=== PATIENT | female | born 1975 | race Caucasian/White ===

== ENCOUNTER 2017-07-23 12:33 | Day surgery (SDC) | payer OTHER ==
[~2017-07-23] VITALS: Ht 162.6 cm; Wt 87.9 kg
[~2017-07-23 12:33] MED LIST: ASPI-161 PO; BUSP15TA47 PO; HYDR12CA PO; IBUP1TAB6 PO; LEVO25TA5 PO; LEXA1TAB PO; OMEP20CA3 PO; VITA100067 PO; ZETI10TA30 PO
[2017-07-23] MEDS ORDERED: NS 1,000 ML IV ONE (13:00)
[2017-07-23] MEDS ORDERED: LIDOCAINE 2% INJ 100 MG/5 ML SDV (FOR ANES.) As Ordered ONE (14:31)
[2017-07-23] MEDS ORDERED: PROPOFOL 200 MG/20 ML VIAL As Ordered ONE (14:31)
[2017-07-23] MEDS ORDERED: fentaNYL 100 MCG/2 ML INJECTION (J3010) As Ordered ONE (15:06)
--- NOTE | 2017-07-23 15:17 | ROOR ---
Patient Name: Kay Pearson Procedure Date: 07/23/2017 3:01 PM Date of : 1975 Age: 42 Room: [facility] Gender: Female Note Status: Finalized Procedure: Upper GI endoscopy Indications: Abdominal pain, Diarrhea Providers: Priyank FISHER MD Referring MD: Zully Silverman NP Requesting Provider: Medicines: Monitored Anesthesia Care Complications: No immediate complications. Procedure: Pre-Anesthesia Assessment: - The heart rate, respiratory rate, oxygen saturations, blood pressure, adequacy of pulmonary ventilation, and response to care were monitored throughout the procedure. The Endoscope was introduced through the mouth, and advanced to the second part of duodenum. The upper GI endoscopy was accomplished without difficulty. The patient tolerated the procedure well. Findings: The esophagus was normal. The stomach was normal. The examined duodenum was normal. Biopsies for histology were taken with a cold forceps in the second portion of the duodenum for evaluation of celiac disease. Impression: - Normal esophagus. - Normal stomach. - Normal examined duodenum. - Biopsies were taken with a cold forceps for evaluation of celiac disease. Recommendation: - Await pathology results. - Telephone endoscopist for pathology results in 2 weeks. Priyank Fisher MD Priyank FISHER MD 07/23/2017 3:16:27 PM This report has been signed electronically. Number of Addenda: 0 Note Initiated On: 07/23/2017 3:01 PM Estimated Blood Loss: Estimated blood loss: none.
--- NOTE | 2017-07-23 15:35 | ROOR ---
Patient Name: Kay Pearson Procedure Date: 07/23/2017 3:02 PM Date of : 1975 Age: 42 Room: [facility] Gender: Female Note Status: Finalized Procedure: Colonoscopy Indications: High risk colon cancer surveillance: Personal history of colonic polyps, Incidental change in bowel habits noted Providers: Priyank FISHER MD Referring MD: Zully Silverman NP Requesting Provider: Medicines: Monitored Anesthesia Care Complications: No immediate complications. Procedure: Pre-Anesthesia Assessment: - The heart rate, respiratory rate, oxygen saturations, blood pressure, adequacy of pulmonary ventilation, and response to care were monitored throughout the procedure. The Colonoscope was introduced through the anus and advanced to 5 cm into the ileum. The colonoscopy was performed without difficulty. The patient tolerated the procedure well. The quality of the bowel preparation was good. Findings: The perianal and digital rectal examinations were normal. (Exam: Complete, Prep: Good or Excellent.) A 5 mm polyp was found in the proximal ascending colon. The polyp was sessile. The polyp was removed with a cold snare. Resection and retrieval were complete. To prevent bleeding after the polypectomy, four hemostatic clips were successfully placed (MR conditional). There was no bleeding at the end of the procedure. The colon exam was otherwise normal throughout the examined colon. The terminal ileum appeared normal. Impression: - (Exam: Complete, Prep: Good or Excellent.) - One 5 mm polyp in the proximal ascending colon, removed with a cold snare. Resected and retrieved. Clips (MR conditional) were placed. - Small internal hemorrhoids. - The rest of the colon and examined portion of the ileum was normal. Recommendation: - Continue present medications. - Telephone endoscopist for pathology results in 2 weeks. - If the pathology report reveals adenomatous tissue, then repeat the colonoscopy for surveillance in 3 years. Priyank Fisher MD Priyank FISHER MD 07/23/2017 3:34:43 PM This report has been signed electronically. Number of Addenda: 0 Note Initiated On: 07/23/2017 3:02 PM Estimated Blood Loss: Estimated blood loss: none.
[2017-07-23 15:55] VITALS: BP 158/91
== END 2017-07-23 16:04 | disposition home or self-care (01) ==
LOC: M OPP 12:33
PROVIDERS: ATTEND Internal Medicine Gastroenterology
DX: Z12.11 Encounter for screening for malignant neoplasm of colon (principal); D12.2 Benign neoplasm of ascending colon; K64.8 Other hemorrhoids; Z86.010 Personal history of colon polyps; R10.9 Unspecified abdominal pain; R19.7 Diarrhea, unspecified; I10 Essential (primary) hypertension; E78.5 Hyperlipidemia, unspecified; E03.9 Hypothyroidism, unspecified; K21.9 Gastro-esophageal reflux disease without esophagitis; F32.9 Major depressive disorder, single episode, unspecified; F41.9 Anxiety disorder, unspecified; F17.210 Nicotine dependence, cigarettes, uncomplicated; Z79.82 Long term (current) use of aspirin; Z79.899 Other long term (current) drug therapy
CPT/HCPCS: 43239; 45385; 88305; J3010

== ENCOUNTER → 2020-10-02 | Outpatient (CLI) | payer OTHER ==
[~2020-10-02] MED LIST changes: +DICY20TA11 PO; +HYDR-3363 PO; +LEVO50TA5 PO; +LISI10TA22 PO; +OMEP1CAP73 PO; -OMEP20CA3 PO; +SIMV40TA20 PO; +TRAZ-252 PO; +VITA200016 PO; +VITA50005 PO; +ZETI10TA16 PO; -ZETI10TA30 PO
== END ==
LOC: M LABSMTC 10:22
PROVIDERS: ATTEND Anesthesiology
DX: Z01.812 Encounter for preprocedural laboratory examination (principal); Z20.822 Contact with and (suspected) exposure to COVID-19

== ENCOUNTER 2020-10-07 08:45 | Day surgery (SDC) | payer OTHER ==
[~2020-10-07] VITALS: Ht 162.6 cm; Wt 75.3 kg
[~2020-10-07 08:45] MED LIST changes: +LIDOCAINE 2% 100MG/5ML SDV (FOR ANES.) As Ordered ONE; +NS 1,000 ML IV ONE; +propofoL 200 MG/20 ML VIAL As Ordered ONE
--- OUTSIDE RECORDS SUMMARY | 2020-10-07 08:50 | CCD ---
Author Author [facility] Organization [facility] Address Unknown Phone Unavailable Care Team Providers Care Supervisor Operations Name Role Phone [place], L Fátima ORDER EXPEDITER Unavailable Unavailable Chris, L Fátima ORDER EXPEDITER Unavailable Unavailable [place], L Fátima ORDER EXPEDITER Unavailable Unavailable [place], L Fátima ORDER EXPEDITER Unavailable Unavailable Chris, L Fátima ORDER EXPEDITER Unavailable Unavailable [place], L Fátima ORDER EXPEDITER Unavailable Unavailable [place], L Fátima ORDER EXPEDITER Unavailable Unavailable Chris, L Fátima ORDER EXPEDITER Unavailable Unavailable [place], L Fátima ORDER EXPEDITER Unavailable Unavailable [facility] [place], L Fátima ORDER EXPEDITER Unavailable Unavailable [place], L Fátima ORDER EXPEDITER Unavailable Unavailable [facility] [place], L Fátima ORDER EXPEDITER Unavailable Unavailable [facility] [place], L Fátima ORDER EXPEDITER Unavailable Unavailable [facility] [place], L Fátima ORDER EXPEDITER Unavailable Unavailable [facility] [place], L Fátima ORDER EXPEDITER Unavailable Unavailable [place], L Fátima ORDER EXPEDITER Unavailable Unavailable [place], L Fátima ORDER EXPEDITER Unavailable Unavailable Chris, L Fátima ORDER EXPEDITER Unavailable Unavailable Chris, L Fátima ORDER EXPEDITER Unavailable Unavailable Chris, L Fátima ORDER EXPEDITER Unavailable Unavailable Chris, L Fátima ORDER EXPEDITER Unavailable Unavailable [facility] [place], L Fátima ORDER EXPEDITER Unavailable Unavailable [facility] [place], L Fátima ORDER EXPEDITER Unavailable Unavailable [facility] [place], L Fátima ORDER EXPEDITER Unavailable Unavailable Chris, L Fátima ORDER EXPEDITER Unavailable Unavailable [facility] [place], L Fátima ORDER EXPEDITER Unavailable Unavailable Chris, L Fátima ORDER EXPEDITER Unavailable Unavailable [facility] [place], L Fátima ORDER EXPEDITER Unavailable Unavailable Chris, L Fátima ORDER EXPEDITER Unavailable Unavailable Chris, L Fátima ORDER EXPEDITER Unavailable Unavailable [facility] [place], L Fátima ORDER EXPEDITER Unavailable Unavailable Chris, L Fátima ORDER EXPEDITER Unavailable Unavailable BENNY, L SISSY PA Unavailable Unavailable BENNY, L SISSY PA Unavailable Unavailable BENNY, L SISSY PA Unavailable Unavailable BENNY, L SISSY PA Unavailable Unavailable BENNY, L SISSY PA Unavailable Unavailable BENNY, L SISSY PA Unavailable Unavailable BENNY, L SISSY PA Unavailable Unavailable BENNY, L SISSY PA Unavailable Unavailable BENNY, L SISSY PA Unavailable Unavailable BENNY, L SISSY PA Unavailable Unavailable BENNY, L SISSY PA Unavailable Unavailable BENNY, L SISSY PA Unavailable Unavailable BENNY, L SISSY PA Unavailable Unavailable BENNY, L SISSY PA Unavailable Unavailable BENNY, L SISSY PA Unavailable Unavailable BENNY, L SISSY PA Unavailable Unavailable BNENY, L SISSY PA Unavailable Unavailable BENNY, L SISSY PA Unavailable Unavailable BENNY, L SISSY PA Unavailable Unavailable MCDERMOTT SR, MIGUEL DIAZ MD Unavailable Unavailable MCDERMOTT SR, MIGUEL DIAZ MD Unavailable Unavailable MCDERMOTT SR, MIGUEL DIAZ MD Unavailable Unavailable MCDERMOTT SR, MIGUEL DIAZ MD Unavailable Unavailable MCDERMOTT SR, MIGUEL DIAZ MD Unavailable Unavailable MCDERMOTT SR, MIGUEL DIAZ MD Unavailable Unavailable MCDERMOTT SR, MIGUEL DIAZ MD Unavailable Unavailable MCDERMOTT SR, MIGUEL DIAZ MD Unavailable Unavailable MCDERMOTT SR, MIGUEL DIAZ MD Unavailable Unavailable MCDERMOTT SR, MIGUEL DIAZ MD Unavailable Unavailable MCDERMOTT SR, MIGUEL DIAZ MD Unavailable Unavailable MCDERMOTT SR, MIGUEL DIAZ MD Unavailable Unavailable MCDERMOTT SR, MIGUEL DIAZ MD Unavailable Unavailable MCDERMOTT SR, MIGUEL DIAZ MD Unavailable Unavailable MCDERMOTT SR, MIGUEL DIAZ MD Unavailable Unavailable MCDERMOTT SR, MIGUEL DIAZ MD Unavailable Unavailable MCDEROMTT SR, MIGUEL DIAZ MD Unavailable Unavailable MCDERMOTT SR, MIGUEL DIAZ MD Unavailable Unavailable MCDERMOTT SR, MIGUEL DIAZ MD Unavailable Unavailable MCDERMOTT SR, MIGUEL DIAZ MD Unavailable Unavailable MCDERMOTT SR, MIGUEL DIAZ MD Unavailable Unavailable MCDERMOTT SR, MIGUEL DIAZ MD Unavailable Unavailable MCDERMOTT SR, MIGUEL DIAZ MD Unavailable Unavailable MCDERMOTT SR, MIGUEL DIAZ MD Unavailable Unavailable MCDERMOTT SR, MIGUEL DIAZ MD Unavailable Unavailable MCDERMOTT SR, MIGUEL DIAZ MD Unavailable Unavailable MCDERMOTT SR, MIGUEL DIAZ MD Unavailable Unavailable MCDERMOTT SR, MIGUEL DIAZ MD Unavailable Unavailable MCDERMOTT SR, MIGUEL DIAZ MD Unavailable Unavailable MCDERMOTT SR, MIGUEL DIAZ MD Unavailable Unavailable MCDERMOTT SR, MIGUEL DIAZ MD Unavailable Unavailable MCDERMOTT SR, MIGUEL DIAZ MD Unavailable Unavailable MCDERMOTT SR, MIGUEL DIAZ MD Unavailable Unavailable MCDERMOTT SR, MIGUEL DIAZ MD Unavailable Unavailable MCDERMOTT SR, MIGUEL DIAZ MD Unavailable Unavailable MCDERMOTT SR, MIGUEL DIAZ MD Unavailable Unavailable MCDERMOTT SR, MIGUEL DIAZ MD Unavailable Unavailable MCDERMOTT SR, MIGUEL DIAZ MD Unavailable Unavailable MCDERMOTT SR, MIGUEL DIAZ MD Unavailable Unavailable MCDERMOTT SR, MIGUEL DIAZ MD Unavailable Unavailable MCDERMOTT SR, MIGUEL DIAZ MD Unavailable Unavailable MCDERMOTT SR, MIGUEL DIAZ MD Unavailable Unavailable MCDERMOTT SR, MIGUEL DIAZ MD Unavailable Unavailable MCDERMOTT SR, MIGUEL DIAZ MD Unavailable Unavailable MCDERMOTT SR, MIGUEL DIAZ MD Unavailable Unavailable MCDERMOTT SR, MIGUEL DIAZ MD Unavailable Unavailable MCDERMOTT SR, MIGUEL DIAZ MD Unavailable Unavailable MCDERMOTT SR, MIGUEL DIAZ MD Unavailable Unavailable MCDERMOTT SR, MIGUEL DIAZ MD Unavailable Unavailable MCDERMOTT SR, MIGUEL DIAZ MD Unavailable Unavailable MCDERMOTT SR, MIGUEL DIAZ MD Unavailable Unavailable MCDERMOTT SR, MIGUEL DIAZ MD Unavailable Unavailable MCDERMOTT SR, MIGUEL DIAZ MD Unavailable Unavailable MCDERMOTT SR, MIGUEL DIAZ MD Unavailable Unavailable ESTRADA, ANGEL ARCE Unavailable Unavailable ESTRADA, ANGEL ARCE Unavailable Unavailable ESTRADA, ANGEL ARCE Unavailable Unavailable ESTRADA, ANGEL ARCE Unavailable Unavailable ESTRADA, ANGEL ARCE Unavailable Unavailable ESTRADA, ANGEL ARCE Unavailable Unavailable ESTRADAANGEL MD Unavailable Unavailable ESTRADA, ANGEL ARCE Unavailable Unavailable ESTRADA, ANGEL ARCE Unavailable Unavailable ESTRADAANGEL MD Unavailable Unavailable MAYURIJuan Ramon CORTEZW DO Unavailable Unavailable MAYURIJuan Ramon CORTEZW DO Unavailable Unavailable MAYURIJuan Ramon CORTEZW DO Unavailable Unavailable MAYURIJuan Ramon CORTEZW DO Unavailable Unavailable MAYURIJuan Ramon CORTEZW DO Unavailable Unavailable MAYURIJuan Ramon CORTEZW DO Unavailable Unavailable MAYURIJuan Ramon CORTEZW DO Unavailable Unavailable MAYURIJuan Ramon CORTEZW DO Unavailable Unavailable MAYURIJuan Ramon CORTEZW DO Unavailable Unavailable MAYURIJuan Ramon CORTEZW DO Unavailable Unavailable MAYURI, J KANDI DO Unavailable Unavailable MAYURI, J KANDI DO Unavailable Unavailable MAYURIJuan Ramon CORTEZW DO Unavailable Unavailable MAYURIJuan Ramon CORTEZW DO Unavailable Unavailable MAYURIJuan Ramon CORTEZW DO Unavailable Unavailable MAYURIJuan Ramon CORTEZW DO Unavailable Unavailable MAYURIJuan Ramon CORTEZW DO Unavailable Unavailable MAYURI, J KANDI DO Unavailable Unavailable MAYURI, J KANDI DO Unavailable Unavailable MAYURI, J KANDI DO Unavailable Unavailable MAYURI, J KANDI DO Unavailable Unavailable MAYURI, Juan Ramon IYERW DO Unavailable Unavailable MAYURI, J KANDI DO Unavailable Unavailable VIN DAVIS FIBER TECHNICIAN-C, MSN Unavailable Unavailab toshia DAVIS, VIN NAIR FIBER TECHNICIAN-C, MSN Unavailable Unavailab le DAVIS, VIN JOANIE FIBER TECHNICIAN-C, MSN Unavailable Unavailab le DAVIS, VIN JOANIE FIBER TECHNICIAN-C, MSN Unavailable Unavailab le DAVIS, VIN JOANIE FIBER TECHNICIAN-C, MSN Unavailable Unavailab le DAVIS, VIN JOANIE FIBER TECHNICIAN-C, MSN Unavailable Unavailab le DAVIS, VIN JOANIE FIBER TECHNICIAN-C, MSN Unavailable Unavailab le DAVIS, VIN JOANIE FIBER TECHNICIAN-C, MSN Unavailable Unavailab le DAVIS, VIN JOANIE FIBER TECHNICIAN-C, MSN Unavailable Unavailab le DAVIS, VIN JOANIE FIBER TECHNICIAN-C, MSN Unavailable Unavailab le DAVIS, VIN JOANIE FIBER TECHNICIAN-C, MSN Unavailable Unavailab le DAVIS, VIN JOANIE FIBER TECHNICIAN-C, MSN Unavailable Unavailab le DAVIS, VIN JOANIE FIBER TECHNICIAN-C, MSN Unavailable Unavailab le DAVIS, VIN JOANIE FIBER TECHNICIAN-C, MSN Unavailable Unavailab le DAVIS, VIN JOANIE FIBER TECHNICIAN-C, MSN Unavailable Unavailab le DAVIS, VIN JOANIE FIBER TECHNICIAN-C, MSN Unavailable Unavailab le DAVIS, VIN JOANIE FIBER TECHNICIAN-C, MSN Unavailable Unavailab le DAVIS, VIN JOANIE FIBER TECHNICIAN-C, MSN Unavailable Unavailab le DAVIS, VIN JOANIE FIBER TECHNICIAN-C, MSN Unavailable Unavailab le DAVIS, VIN JOANIE FIBER TECHNICIAN-C, MSN Unavailable Unavailab le DAVIS, VIN JOANIE FIBER TECHNICIAN-C, MSN Unavailable Unavailab le DAVIS, VIN JOANIE FIBER TECHNICIAN-C, MSN Unavailable Unavailab le DAVIS, VIN JOANIE FIBER TECHNICIAN-C, MSN Unavailable Unavailab le DAVIS, VIN JOANIE FIBER TECHNICIAN-C, MSN Unavailable Unavailab le DAVIS, VIN JOANIE FIBER TECHNICIAN-C, MSN Unavailable Unavailab le DAVIS, VIN JOANIE FIBER TECHNICIAN-C, MSN Unavailable Unavailab le DAVIS, VIN JOANIE FIBER TECHNICIAN-C, MSN Unavailable Unavailab le DAVIS, VIN JOANIE FIBER TECHNICIAN-C, MSN Unavailable Unavailab le DAVIS, VIN JOANIE FIBER TECHNICIAN-C, MSN Unavailable Unavailab le DAVIS, VIN JOANIE FIBER TECHNICIAN-C, MSN Unavailable Unavailab le DAVIS, VIN JOANIE FIBER TECHNICIAN-C, MSN Unavailable Unavailab le DAVIS, VIN JOANIE FIBER TECHNICIAN-C, MSN Unavailable Unavailab le DAVIS, VIN JOANIE FIBER TECHNICIAN-C, MSN Unavailable Unavailab le DAVIS, VIN JOANIE FIBER TECHNICIAN-C, MSN Unavailable Unavailab le DAVIS, VIN JOANIE FIBER TECHNICIAN-C, MSN Unavailable Unavailab le DAVIS, VIN JOANIE FIBER TECHNICIAN-C, MSN Unavailable Unavailab le DAVIS, VIN JOANIE FIBER TECHNICIAN-C, MSN Unavailable Unavailab le DAVIS, VIN JOANIE FIBER TECHNICIAN-C, MSN Unavailable Unavailab le DAVIS, VIN JOANIE FIBER TECHNICIAN-C, MSN Unavailable Unavailab le DAVIS, VIN JOANIE FIBER TECHNICIAN-C, MSN Unavailable Unavailab le DAVIS, VIN JOANIE FIBER TECHNICIAN-C, MSN Unavailable Unavailab le DAVIS, VIN JOANIE FIBER TECHNICIAN-C, MSN Unavailable Unavailab le DAVIS, VIN JOANIE FIBER TECHNICIAN-C, MSN Unavailable Unavailab le BUNDY, W PING PA Unavailable Unavailable BUNDY, W PING PA Unavailable Unavailable BUNDY, W PING PA Unavailable Unavailable BUNDY, W PING PA Unavailable Unavailable BUNDY, W PING PA Unavailable Unavailable BUNDY, W PING PA Unavailable Unavailable BUNDY, W PING PA Unavailable Unavailable BUNDY, W PING PA Unavailable Unavailable BUNDY, W PING PA Unavailable Unavailable BUNDY, W PING PA Unavailable Unavailable BUNDY, W PING PA Unavailable Unavailable BUNDY, W PING PA Unavailable Unavailable BUNDY, W PING PA Unavailable Unavailable Tobi, A Malou FIBER TECHNICIAN Unavailable Unavailable Tobi, A Malou FIBER TECHNICIAN Unavailable Unavailable Tobi, A Malou FIBER TECHNICIAN Unavailable Unavailable Tobi, A Malou FIBER TECHNICIAN Unavailable Unavailable Tobi, A Malou FIBER TECHNICIAN Unavailable Unavailable Tobi, A Malou FIBER TECHNICIAN Unavailable Unavailable Tobi, A Malou FIBER TECHNICIAN Unavailable Unavailable Tobi, A Malou FIBER TECHNICIAN Unavailable Unavailable Tobi, A Malou FIBER TECHNICIAN Unavailable Unavailable Tobi, A Malou FIBER TECHNICIAN Unavailable Unavailable Tobi, A Malou FIBER TECHNICIAN Unavailable Unavailable Tobi, A Malou FIBER TECHNICIAN Unavailable Unavailable Tobi, A Malou FIBER TECHNICIAN Unavailable Unavailable Tobi, A Maolu FIBER TECHNICIAN Unavailable Unavailable Tobi, A Malou FIBER TECHNICIAN Unavailable Unavailable Tobi, A Malou FIBER TECHNICIAN Unavailable Unavailable Tobi, A Malou FIBER TECHNICIAN Unavailable Unavailable Tobi, A Malou FIBER TECHNICIAN Unavailable Unavailable Tobi, A Malou FIBER TECHNICIAN Unavailable Unavailable Tobi, A Malou FIBER TECHNICIAN Unavailable Unavailable Tobi, A Malou FIBER TECHNICIAN Unavailable Unavailable Tobi, A Malou FIBER TECHNICIAN Unavailable Unavailable Tobi, A Malou FIBER TECHNICIAN Unavailable Unavailable Tobi, A Malou FIBER TECHNICIAN Unavailable Unavailable Tobi, A Malou FIBER TECHNICIAN Unavailable Unavailable Tobi, A Malou FIBER TECHNICIAN Unavailable Unavailable Tobi, A Malou FIBER TECHNICIAN Unavailable Unavailable Tobi, A Malou FIBER TECHNICIAN Unavailable Unavailable Tobi, A Malou FIBER TECHNICIAN Unavailable Unavailable Tobi, A Malou FIBER TECHNICIAN Unavailable Unavailable Tobi, A Malou FIBER TECHNICIAN Unavailable Unavailable Tobi, A Malou FIBER TECHNICIAN Unavailable Unavailable Tobi, A Malou FIBER TECHNICIAN Unavailable Unavailable Tobi, A Malou FIBER TECHNICIAN Unavailable Unavailable Tobi, A Malou FIBER TECHNICIAN Unavailable Unavailable Tobi, A Malou FIBER TECHNICIAN Unavailable Unavailable Tobi, A Malou FIBER TECHNICIAN Unavailable Unavailable Tobi, A Malou FIBER TECHNICIAN Unavailable Unavailable Tobi, A Malou FIBER TECHNICIAN Unavailable Unavailable Tobi, A Malou FIBER TECHNICIAN Unavailable Unavailable Tobi, A Malou FIBER TECHNICIAN Unavailable Unavailable Tobi, A Malou FIBER TECHNICIAN Unavailable Unavailable Tobi, A Malou FIBER TECHNICIAN Unavailable Unavailable Tobi, A Malou FIBER TECHNICIAN Unavailable Unavailable URIARTE, W KIERA PA Unavailable Unavailable URIARTE, W KIERA PA Unavailable Unavailable URIARTE, W KIERA PA Unavailable Unavailable URIARTE, W KIERA PA Unavailable Unavailable URIARTE, W KIERA PA Unavailable Unavailable URIARTE, W KIERA PA Unavailable Unavailable URIARTE, W KIERA PA Unavailable Unavailable URIARTE, W KIERA PA Unavailable Unavailable URIARTE, W KIERA PA Unavailable Unavailable URIARTE, W KIERA PA Unavailable Unavailable URIARTE, W KIERA PA Unavailable Unavailable URIARTE, W KIERA PA Unavailable Unavailable URIARTE, W KIERA PA Unavailable Unavailable URIARTE, W KIERA PA Unavailable Unavailable URIARTE, W KIERA PA Unavailable Unavailable URIARTE, W KIERA PA Unavailable Unavailable URIARTE, W KIERA PA Unavailable Unavailable URIARTE, W KIERA PA Unavailable Unavailable URIARTE, W KIERA PA Unavailable Unavailable URIARTE, W KIERA PA Unavailable Unavailable URIARTE, W KIERA PA Unavailable Unavailable URIARTE, W KIERA PA Unavailable Unavailable URIARTE, W KIERA PA Unavailable Unavailable URIARTE, W KIERA PA Unavailable Unavailable URIARTE, W KIERA PA Unavailable Unavailable URIARTE, W KIERA PA Unavailable Unavailable URIARTE, W KIERA PA Unavailable Unavailable URIARTE, W KIERA PA Unavailable Unavailable URIARTE, W KIERA PA Unavailable Unavailable URIARTE, W KIERA PA Unavailable Unavailable URIARTE, W KIERA PA Unavailable Unavailable URIARTE, W KIERA PA Unavailable Unavailable URIARTE, W KIERA PA Unavailable Unavailable URIARTE, W KIERA PA Unavailable Unavailable URIARTE, W KIERA PA Unavailable Unavailable URIARTE, W KIERA PA Unavailable Unavailable URIARTE, W KIERA PA Unavailable Unavailable URIARTE, W KIERA PA Unavailable Unavailable URIARTE, W KIERA PA Unavailable Unavailable URIARTE, W KIERA PA Unavailable Unavailable URIARTE, W KIERA PA Unavailable Unavailable URIARTE, W KIERA PA Unavailable Unavailable URIARTE, W KIERA PA Unavailable Unavailable URIARTE, W KIERA PA Unavailable Unavailable URIARTE, W KIERA PA Unavailable Unavailable URIARTE, W KIERA PA Unavailable Unavailable Re-disclosure Warning The records that you are about to access may contain information from federally-assisted alcohol or drug abuse programs. If such information is present, then the following federally mandated warning applies: This information has been disclosed to you from records protected by federal confidentiality rules (42 CFR part 2). The federal rules prohibit you from making any further disclosure of this information unless further disclosure is expressly permitted by the written consent of the person to whom it pertains or as otherwise permitted by 42 CFR part 2. A general authorization for the release of medical or other information is NOT sufficient for this purpose. The Federal rules restrict any use of the information to criminally investigate or prosecute any alcohol or drug abuse patient.The records that you are about to access may contain highly sensitive health information, the redisclosure of which is protected by Article 27-F of the [place] State Public Health law. If you continue you may have access to information: Regarding HIV / AIDS; Provided by facilities licensed or operated by the [facility] Office of Mental Health; or Provided by the [facility] Office for People With Developmental Disabilities. If such information is present, then the following [facility] mandated warning applies: This information has been disclosed to you from confidential records which are protected by state law. State law prohibits you from making any further disclosure of this information without the specific written consent of the person to whom it pertains, or as otherwise permitted by law. Any unauthorized further disclosure in violation of state law may result in a fine or nursing home sentence or both. A general authorization for the release of medical or other information is NOT sufficient authorization for further disc losure. Family History Family Member Name Family Member Gender Family Member Status Date o f Status Description Data Source(s) Unknown Unknown Problem [facility] Encounters Encounter Providers Location Date Indications Data Source(s ) Outpatient Attender: Malou Britton FNPReferrer: Fátima CASTRO EMERGENCY ROOM-LAB 07/25/2020 10:02:00 AM EST - 07/25/2020 10:02:00 AM [facility] Outpatient Attender: Malou CERVANTES 07/25/2020 08:57 :00 AM [facility] Outpatient [facility] 07/25/2020 12:00:00 AM EST eCW ([facility]) Outpatient [facility] 06/05/2020 12:00:00 AM EDT eCW1 ([facility]) Outpatient Attender: Fátima CASTRO 05/27/2020 08:23:00 AM EDT [facility] Outpatient [facility] 05/27/2020 12:00:00 AM EDT eCW1 ([facility]) Emergency Attender: SISSY Riveraerrer: Naren CASTRO EMERGENCY ROOM-ER 05/22/2020 05:42:00 PM EDT - 05/22/2020 06:15:00 PM EDT [facility] Patient discharged. Outpatient [facility] 04/26/2020 12:00:00 AM EDT eCW1 ([facility]) Outpatient Attender: Fátima CASTROReferrer: Fátima CASTRO 04/23/2020 09:00:00 AM EDT [facility] Outpatient Attender: Fátima Perez RNPReferrer: Naren CASTRO EMERGENCY ROOM-RIVCLI 04/19/2020 08:22:00 AM EDT - 04/19/2020 08:22:00 AM EDT [facility] Outpatient [facility] 04/19/2020 12:00:00 AM EDT eCW1 ([facility]) Outpatient Attender: Fátima Perez RNPReferrer: Naren CASTRO EMERGENCY ROOM-RIVCLI 02/26/2020 07:25:00 AM EDT - 02/26/2020 07:25:00 AM EDT [facility] Outpatient [facility] 02/26/2020 12:00:00 AM EDT eCW1 ([facility]) Outpatient Attender: Fátima CASTROA ttender: JOANIE IVAN, MSNReferrer: Fátima CASTRO 02/12/2020 10:00:00 AM EDT [facility] Outpatient Attender: Fátima Peerz RNPReferrer: Naren CASTRO EMERGENCY ROOM-LAB 01/25/2020 09:25:00 AM EDT - 01/25/2020 09:25:00 AM EDT [facility] Outpatient Attender: Fátima CASTRO 01/24/2020 01:49:00 PM EDT [facility] Outpatient [facility] 01/24/2020 12:00:00 AM EDT eCW1 ([facility]) [facility] C ENTER 12/12/2019 12:00:00 AM EDT eCW1 ([facility]) [facility] 11/23/2019 12:00:00 AM EDT eCW1 ([facility]) Outpatient Attender: JOANIE IVAN MSNReferr er: JOANIE IVAN, MSN EMERGENCY ROOM-RIVCLI 09/26/2019 02:44:00 PM EST - 09/26/2019 02:44:00 PM EST [facility] C ENTER 09/26/2019 12:00:00 AM EST eCW1 ([facility]) Outpatient Attender: JOE MCDERMOTT SRReferrer: JOANIE IVAN, MSN 06/23/2019 08:33:00 AM EST - 06/23/2019 08:33:00 AM [facility] Outpatient Attender: JOE MCDERMOTT SR 05/04/2019 08:39:00 AM [facility] Outpatient Attender: JOE MCDERMOTT SRReferrer: JOANIE IVAN, MSN 02/08/2019 10:00:00 AM [facility] Admission cancelled. Disregard status an d admitted date. Outpatient Attender: JOE MCDERMOTT SR 01/12/2019 06:58:00 AM [facility] Outpatient Attender: JOE MCDERMOTT SRReferrer: JOANIE IVAN, MSN 12/15/2018 08:40:00 AM [facility] - 12/15/2018 08:40:00 AM [facility] Outpatient Attender: JOANIE IVAN, MSNReferr er: JOANIE IVAN MSN EMERGENCY ROOM-LAB 12/15/2018 07:32:00 AM [facility] - 12/15/2018 07:32:00 AM [facility] Outpatient Attender: JOANIE IVAN, MSNReferr er: JOANIE IVAN, MSN 02/07/2018 10:00:00 AM [facility] - 02/07/2018 10:00:00 AM [facility] Outpatient Attender: JOANIE IVAN, MSN 02/05/2017 0 9:41:00 AM [facility] Outpatient Attender: AGNEL ESTRADA MD 04/04/2016 01:48:00 PM [facility] Outpatient Attender: JOANIE IVAN, MSN 03/24/2016 1 0:00:00 AM [facility] Outpatient Attender: KANDI MESSINA DO 12/12/2015 01:00:00 P M [facility] Emergency Attender: PING WILDE EMERGENCY ROOM-ER 2014 08:31:00 AM [facility] - 07/23/2015 12:04:00 PM [facility] Emergency Attender: KIERA WILDE EMERGENCY ROOM-ER 0 03/19/2014 12:51:00 PM EDT - 03/19/2014 04:36:00 PM [facility] Medications Medication Brand Name Start Date Product Form Dose Route Admi nistrative Instructions Pharmacy Instructions Status Indications Reaction Description Data Source(s) 20 mg 08/15/2020 12:00:00 AM EST tablet 120 TAKE 2 TABLETS BY MOUTH 2 TIMES A DAY TAKE 2 TABLETS BY MOUTH 2 TIMES A DAY SOLD: 09/24/2020 [facility] 20 mg 08/15/2020 12:00:00 AM EST tablet 120 TAKE 2 TABLETS BY MOUTH 2 TIMES A DAY TAKE 2 TABLETS BY MOUTH 2 TIMES A DAY SOLD: 08/20/2020 [facility] 40 mg 08/13/2020 12:00:00 AM EST tablet 30 TAKE ONE TABLET BY MOUTH EVERY DAY IN THE EVENING TAKE ONE TABLET BY MOUTH EVERY DAY IN THE EVENING SOLD : 08/20/2020 [facility] ezetimibe 10 MG Oral Tablet EZETIMIBE 08/13/2020 12:00:00 AM EST table t 30 TAKE ONE TABLET BY MOUTH EVERY DAY TAKE ONE TABLET BY MOUTH EVERY DAY SOLD: 08/20/2020 [facility] 600 mg 08/13/2020 12:00:00 AM EST tablet 90 TAKE ONE TABLET BY MOUTH THREE TIMES A DAY NEEDED TAKE ONE TABLET BY MOUTH THREE TIMES A DAY NEEDED S OLD: 08/20/2020 [facility] 50 mcg (2,000 unit) 08/13/2020 12:00:00 AM EST capsule 30 TAKE 1 CAPSULE BY MOUTH ONCE A DAY TAKE 1 CAPSULE BY MOUTH ONCE A DAY SOLD: 09/24/2020 [facility] 81 mg 08/13/2020 12:00:00 AM EST tablet,delayed release (DR/EC) 30 TAKE ONE TABLET BY MOUTH EVERY DAY TAKE ONE TABLET BY MOUTH EVERY DAY SOLD: 08/20/2020 [facility] 40 mg 08/13/2020 12:00:00 AM EST tablet 30 TAKE ONE TABLET BY MOUTH EVERY DAY IN THE EVENING TAKE ONE TABLET BY MOUTH EVERY DAY IN THE EVENING SOLD : 09/24/2020 [facility] 600 mg 08/13/2020 12:00:00 AM EST tablet 90 TAKE ONE TABLET BY MOUTH THREE TIMES A DAY NEEDED TAKE ONE TABLET BY MOUTH THREE TIMES A DAY NEEDED S OLD: 09/24/2020 [facility] 50 mcg 08/13/2020 12:00:00 AM EST tablet 30 TAKE ONE TABLET BY MOUTH EVERY DAY TAKE ONE TABLET BY MOUTH EVERY DAY SOLD: 09/24/2020 [facility] Escitalopram 20 MG Oral Tablet ESCITALOPRAM OXALATE 08/13/2020 1 2:00:00 AM EST tablet 30 TAKE ONE TABLET BY MOUTH EVERY D AY TAKE ONE TABLET BY MOUTH EVERY DAY SOLD: 08/20/2020 [facility] 81 mg 08/13/2020 12:00:00 AM EST tablet,delayed release (DR/EC) 30 TAKE ONE TABLET BY MOUTH EVERY DAY TAKE ONE TABLET BY MOUTH EVERY DAY SOLD: 09/24/2020 [facility] 20 mg 08/13/2020 12:00:00 AM EST capsule,delayed release (DR/EC) 30 TAKE ONE CAPSULE BY MOUTH EVERY DAY NEEDED TAKE ONE CAPSULE BY MOUTH EVERY DAY NEEDED SOLD: 08/20/2020 [facility] Escitalopram 20 MG Oral Tablet ESCITALOPRAM OXALATE 08/13/2020 1 2:00:00 AM EST tablet 30 TAKE ONE TABLET BY MOUTH EVERY D AY TAKE ONE TABLET BY MOUTH EVERY DAY SOLD: 09/24/2020 [facility] ezetimibe 10 MG Oral Tablet EZETIMIBE 08/13/2020 12:00:00 AM EST table t 30 TAKE ONE TABLET BY MOUTH EVERY DAY TAKE ONE TABLET BY MOUTH EVERY DAY SOLD: 09/24/2020 [facility] 50 mcg 08/13/2020 12:00:00 AM EST tablet 30 TAKE ONE TABLET BY MOUTH EVERY DAY TAKE ONE TABLET BY MOUTH EVERY DAY SOLD: 08/20/2020 [facility] 20 mg 08/13/2020 12:00:00 AM EST capsule,delayed release (DR/EC) 30 TAKE ONE CAPSULE BY MOUTH EVERY DAY NEEDED TAKE ONE CAPSULE BY MOUTH EVERY DAY NEEDED SOLD: 09/24/2020 [facility] 50 mcg (2,000 unit) 08/13/2020 12:00:00 AM EST capsule 30 TAKE 1 CAPSULE BY MOUTH ONCE A DAY TAKE 1 CAPSULE BY MOUTH ONCE A DAY SOLD: 08/20/2020 [facility] MAGNESIUM CITRATE 07/31/2020 12:00:00 AM EST solution 296 DRINK 1 BOTTLE (10 OUNCES) PRIOR TO PROCEDURE FOR ADDITIONAL BOWEL PREP DIRECTED DRINK 1 BOTTLE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 Irritable bowel syndrome with constipatio n Problem 09/26/2019 12:00:00 AM [facility] eCW1 ([facility]) K58.1 IRRITABLE BOWEL SYNDROME WITH CONSTIPATI ON IRRITABLE BOWEL SYNDROME WITH CONSTIPATION Diagnosis 07/25/2020 08:57:00 AM [facility] I10 Essential (primary) hypertension ESSENTIAL (PRIMARY) H YPERTENSION Diagnosis 07/25/2020 08:57:00 AM [facility] F17.210 Nicotine dependence, cigarettes, uncompl icated NICOTINE DEPENDENCE, CIGARETTES, UNCOMPLICATED Diagnosis 07/25/2020 08:57:00 AM [facility] E03.9 Hypothyroidism, unspecified HYPOTHYROIDISM, UNSPECIFIE D Diagnosis 07/25/2020 08:57:00 AM [facility] K21.9 Gastro-esophageal reflux disease without esophagitis GASTRO-ESOPHAGEAL REFLUX DISEASE WITHOUT ESOPHAGIT Diagnosis 07/25/2020 08:57:00 AM [facility] E78.5 Hyperlipidemia, unspecified HYPERLIPIDEMIA, UNSPECIFIE D Diagnosis 07/25/2020 08:57:00 AM [facility] E55.9 Vitamin D deficiency, unspecified VITAMIN D DEFI CIENCY, UNSPECIFIED Diagnosis 07/25/2020 08:57:00 AM [facility] Z71.2 Person consulting for explanation of exa mination or test findings PERSON CONSULTING FOR EXPLANATION OF EXAM OR TEST Diagnosis 05/27/2020 08:23: 00 AM [facility] R63.1 Polydipsia POLYDIPSIA Diagnosis 05/27/2020 08:23:00 AM [facility] M54.5 Low back pain LOW BACK PAIN Diagnosis 05/27/2020 08:23:00 AM [facility] E87.6 Hypokalemia HYPOKALEMIA Diagnosis 05/27/2020 08:23:00 AM [facility] Y93.89 Activity, other specified ACTIVITY, OTHER SPECIFIED Di agnosis 05/22/2020 05:42:00 PM [facility] Y92.[address] the place of o ccurrence of the external cause OTH PLACES THE PLACE OF OCCURRENCE OF THE EXTER Diagnosis 02/2020 05:42:00 PM [facility] X58.XXXA Exposure to other specified factors, ini tial encounter EXPOSURE TO OTHER SPECIFIED FACTORS, INITIAL ENCOU Diagnosis 05/22/2020 05:42:00 P M [facility] Z79.899 Other care home (current) drug therapy O THER WEB SERVICES PROFESSIONAL (CURRENT) DRUG THERAPY Diagnosis 05/22/2020 05:42:00 PM [facility] 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 JAIL (CU RRENT) USE OF ASPIRIN Diagnosis 05/22/2020 05:42:00 PM [facility] Z79.1 shelter (current) use of non-steroidal anti-inflammatories (NSAID) WEB SERVICES PROFESSIONAL (CURRENT) USE OF NON-STEROIDAL NON-INFLA Diagnosis 05/22/20 20 05:42:00 PM [facility] R53.1 Weakness WEAKNESS Diagnosis 05/22/2020 05:42:00 PM [facility] S39.012A Strain of muscle, fascia and tendon of l ower back, initial encounter STRAIN OF MUSCLE, FASCIA AND TENDON OF LOWER BACK, Diagnosis 02/2020 05:42:00 PM [facility] Z87.19 Personal history of other diseases of th e digestive system PERSONAL HISTORY OF OTHER DISEASES OF THE DIGESTIV Diagnosis 04/19/2020 08:22:0 0 AM [facility] R10.10 Upper abdominal pain, unspecified UPPER ABDOMINA L PAIN, UNSPECIFIED Diagnosis 04/19/2020 08:22:00 AM [facility] Z86.39 Personal history of other endocrine, nut ritional and metabolic disease PERSONAL HISTORY OF ENDO, NUTRITIONAL AN Diagnosis 04/19/2020 08:22:00 AM [facility] R63.4 Abnormal weight loss ABNORMAL WEIGHT LOSS Diagnosis 04/19/2020 08:22:00 AM [facility] Z01.419 Encounter for gynecological examination (general) (routine) without abnormal findings ENCNTR FOR INVESTIGATOR WELFARE EXAM (GENERAL) (ROUTINE) W/O ABN FINDIN GS Diagnosis 02/26/2020 07:25:00 AM [facility] Z12.39 Encounter for other screening for malign ant neoplasm of breast ENCOUNTER FOR OTH SCREENING FOR MALIGNAN Diagnosis 02/12/2020 10:00:00 AM [facility] Z12.31 Encounter for screening mammogram for ma lignant neoplasm of breast ENCNTR SCREEN MAMMOGRAM FOR MALIGNANT NEOPLASM OF BREAST Diagnosis 01/15 10:00:00 AM [facility] Z13.1 Encounter for screening for diabetes pavithra litus ENCOUNTER FOR SCREENING FOR DIABETES MELLITUS Diagnosis 01/24/2020 01:49:00 PM [facility] F43.29 Adjustment disorder with other symptoms ADJUSTMENT DISORDER WITH OTHER SYMPTOMS Diagnosis 01/24/2020 01:49:00 PM [facility] K58.9 Irritable bowel syndrome without diarrhe a IRRITABLE BOWEL SYNDROME WITHOUT DIARRHEA Diagnosis 01/24/2020 01:49:00 PM [facility] Z18.10 Retained metal fragments, unspecified RE TAINED METAL FRAGMENTS, UNSPECIFIED Diagnosis 09/26/2019 02:44:00 PM [facility] R10.816 Epigastric abdominal tenderness EPIGASTRIC ABDOM INAL TENDERNESS Diagnosis 09/26/2019 02:44:00 PM [facility] R14.0 Abdominal distension (gaseous) ABDOMINAL DISTENSION (G ASEOUS) Diagnosis 09/26/2019 02:44:00 PM [facility] R10.826 Epigastric rebound abdominal tenderness EPIGASTRIC REBOUND ABDOMINAL TENDERNESS Diagnosis 09/26/2019 02:44:00 PM [facility] K59.01 Slow transit constipation SLOW TRANSIT CONSTIPATION Di agnosis 09/26/2019 02:44:00 PM [facility] Z86.010 Personal history of colonic polyps PERSONAL HIST ORY OF COLONIC POLYPS Diagnosis 09/26/2019 02:44:00 PM [facility] R14.2 Eructation ERUCTATION Diagnosis 09/26/2019 02:44:00 PM [facility] Results ID Date Data Source [id number] 10/02/2020 09:55:00 AM [facility] Name Value Range Interpretation Code Description Data Agnieszka rce(s) Supporting Document(s) SARS coronavirus 2 RNA Not Detected [facility] This lab was ordered by [facility] and reported by [facility]. ID Date Data Source [id number] 07/26/2020 08:09:00 AM [facility] Name Value Range Interpretation Code Description Data Agnieszka rce(s) Supporting Document(s) VITAMIN D, 25-HYDROXY 59.2 ng/mL 30.0-100.0 [facility] Vitamin D deficiency has been defined by the [place] of[place]icine and an Endocrine Society practice guideline as alevel of serum 25-OH vitamin D less than 20 ng/mL (1,2).The Endocrine Society went on to further define vitamin Dinsufficiency as a level between 21 and 29 ng/mL (2).1. IOM ([place] of Medicine). 2010. Dietary reference intakes for calcium and D. [place]: The National Academies Press.2. Moo Marcial, Vinod ALARCON, et al. Evaluation, treatment, and prevention of vitamin D deficiency: an Endocrine Society clinical practice guideline. JCEM. 2010; 96(7):1911- 30.Performed at: RN - [facility] [address] [id number] Director: Eva Crump MD, Phone: [phone] ID Date Data Source [id number] 07/26/2020 08:07:00 AM EST [facility] Name Value Range Interpretation Code Description Data Agnieszka rce(s) Supporting Document(s) Vitamin D, 25-Hydroxy 59.2 ng/mL 30.0-100.0 [facility] Vitamin D deficiency has been defined by the [place] of[place] and an Endocrine Society practice guideline as alevel of serum 25-OH vitamin D less than 20 ng/mL (1,2).The Endocrine Society went on to further define vitamin Dinsufficiency as a level between 21 and 29 ng/mL (2).1. IOM ([place] of [employer]). 2010. Dietary reference intakes for calcium and D. [place]: The National Academies Press.2. Moo Marcial, Vinod ALARCON, et al. Evaluation, treatment, and prevention of vitamin D deficiency: an Endocrine Society clinical practice guideline. JCEM. 2010; 96(7):1911-30. ID Date Data Source [id number] 05/23/2020 09:32:00 AM EDT [facility] Patient: REMI JIMENEZ Observation Report - [facility].VisitID: [id number] [place] [address] [phone], FRegistration Date/Time: 05/22/2020 14:42 Weight:77.5 kg (S). Height/Length:64 inches (S). BMI:29.3 PAST HISTORYProblems:Depression.Bipolar Disorder.Peptic Ulcer Disease.Gastroesophageal Reflux Disease.Hypothyroidism. Additional Surgeries:Colonoscopy..Endoscopy.Nuvasure.Tubal Ligation. Medications:Ibuprofen Oral (Tablet 600 mg) 1 tablet, 3x a day as needed, last dose 1 month ago.traZODone HCl Oral (Tablet 50 mg) 1-2 tabs, as needed, at bedtime, last dose 3 days ago.Vitamin D Oral 50,000, once a week, last dose 05/16/2020 (on ).Lexapro Oral (Tablet 20 mg) 1 tablet, daily as needed, last dose 05/21/2020.Dicyclomine HCl Oral (Tablet 20 mg) 1 tablet, 2x a day, last dose 05/22/2020 at 0800.Aspirin Oral (Tablet Chewable 81 mg) 1 tablet, daily as needed, last dose 05/21/2020.Zetia Oral (Tablet 10 mg) 1 tablet, daily as needed, last dose 05/21/2020.Vitamin D3 Oral 2000 unit, daily, last dose 05/22/2020 at 0800.Simvastatin Oral (Tablet 40 mg) 1 tablet, daily, last dose 05/21/2020.hydroCHLOROthiazide Oral (Tablet 12.5 mg) 1 tablet, daily, last dose 05/22/2020 at 0800.Omeprazole Oral 20 mg, daily, last dose 05/22/2020 at 0800.Levothyroxine Sodium Oral 50 mcg, daily, last dose 05/22/2020. Allergies:No Known Drug Allergy. FAMILY HISTORYNegative. No significant family medical history. (Electronically signed by Maureen Wagner 05/23/2020 09:18) Name Value Range Interpretation Code Description Data Agnieszka rce(s) Supporting Document(s) ID Date Data Source [id number] 05/24/2020 08:10:00 AM EDT [facility] Name Value Range Interpretation Code Description [facility] Supporting Document(s) TRIIODOTHYRONINE (T3) 80 ng/dL 71-180 Shay crabtree Performed at: [facility] [place] [id number] Director: Eva Crump MD, Phone: [phone] ID Date Data Source [id number] 05/24/2020 08:06:00 AM EDT [facility] Name Value Range Interpretation Code Description Data Agnieszka rce(s) Supporting Document(s) Triiodothyronine (T3) 80 ng/dL 71-180 [facility] ID Date Data Source [id number] 05/22/2020 06:31:00 PM EDT [facility] TSYSORDER [id number] Name Value Range Interpretation Code Description Data Agnieszka rce(s) Supporting Document(s) HGBA1C 5.3 % 3.8-5.6 [facility] Diabetic > or = to 6.5%Prediabetes 5.7-6 .4%Normal <5.7 ID Date Data Source [id number] 05/22/2020 06:31:00 PM EDT [facility] TSYSORDER [id number] Name Value Range Interpretation Code Description Data Agnieszka rce(s) Supporting Document(s) TSH 1.84 uIU/mL 0.36-3.74 [facility] ID Date Data Source [id number] 05/22/2020 05:33:00 PM EDT [facility] TSYSORDER [id number] Name Value Range Interpretation Code Description Data Agnieszka rce(s) Supporting Document(s) MAGNESIUM 2.0 mg/dL 1.8-2.4 [facility] ID Date Data Source [id number] 05/22/2020 05:33:00 PM EDT [facility] TSYSORDER [id number] Name Value Range Interpretation Code Description Data Agnieszka rce(s) Supporting Document(s) LIPASE 121 U/L 73-393 [facility] ID Date Data Source [id number] 05/22/2020 05:33:00 PM EDT [facility] TSYSORDER [id number] Name Value Range Interpretation Code Description Data Agnieszka rce(s) Supporting Document(s) GLUCOSE 80 mg/dL 74-106 [facility] BLOOD UREA NITROGEN 12 mg/dL 7-18 [facility] ital CREATININE 0.9 mg/dL 0.6-1.0 [facility] SODIUM 139 mmol/L 136-145 [facility] POTASSIUM 3.2 mmol/L 3.5-5.1 [facility] CHLORIDE 100 mmol/L 98-107 [facility] CO2 28 mmol/L 21-32 [facility] CALCIUM 9.6 mg/dL 8.5-10.1 [facility] ANION GAP 11.0 mmol/L 5-12 [facility] GLOMERULAR FILTRATION RATE 68 mL/min [facility] GFR IS CALCULATED IN mL/min/1.73m2 VICENTA L FUNCTION: >90MILDLY DECREASED: 60-89MILDY TO MODERATELY DECREASED: 45-59 MODERATELY TO SEVERELY DECREASED: 30-44SEVERELY DECREASED: 15-29RENAL FAILURE: <15 AST 23 U/L 15-37 [facility] ALT 26 U/L 12-78 [facility] ALKALINE PHOSPHATASE 71 U/L 46-116 [facility] pitms TOTAL BILIRUBIN 0.4 mg/dL 0.2-1.0 [facility] TOTAL PROTEIN 8.3 g/dl 6.4-8.2 H [facility] ALBUMIN 4.7 gm/dL 3.4-5.0 [facility] ID Date Data Source [id number] 05/22/2020 05:33:00 PM EDT [facility] TSYSORDER [id number] Name Value Range Interpretation Code Description Data Agnieszka rce(s) Supporting Document(s) PARTIAL THROMBOPLASTIN TIME 26.6 SECONDS 21.4-30.2 [facility] ID Date Data Source [id number] 05/22/2020 05:33:00 PM T [facility] TSYSORDER [id number] Name Value Range Interpretation Code Description Data Agnieszka rce(s) Supporting Document(s) PROTHROMBIN TIME (PATIENT) 9.8 SECONDS 9.2-11.6 [facility] INR 0.94 0.87-1.06 [facility] ID Date Data Source [id number] 05/22/2020 05:14:00 PM T [facility] TSYSORDER [id number] Name Value Range Interpretation Code Description Data Agnieszka rce(s) Supporting Document(s) WHITE BLOOD COUNT 8.7 K/mm3 4.0-10.0 [facility] al RED BLOOD COUNT 4.47 M/mm3 4.00-5.50 [facility] HEMOGLOBIN 14.4 gm/dL 12.0-16.0 [facility] HEMATOCRIT 42.5 % 36.0-48.8 [facility] MEAN CELL VOLUME 95.1 fl 80-96 [facility] MEAN CORPUSCULAR HEMOGLOBIN 32.2 pg 27.0-31.0 H [facility] MEAN CORPUSCULAR HGB CONC 33.9 g/dl 32.0-36.0 [facility] RED CELL DISTRIBUTION WIDTH 12.8 % 10.0-14.5 [facility] PLATELET COUNT 353 K/mm3 172-450 [facility] MEAN PLATELET VOLUME 9.2 fl 9.0-13.0 [facility] pital GRAN % 62.4 % 50-80.0 [facility] IG% 0.1 % 0.0-0.2 [facility] LYMPH % 29.5 % 25.0-50.0 [facility] MONO % 7.1 % 2.0-10.0 [facility] EOS % 0.6 % 0-5.0 [facility] BASO % 0.3 % 0.0-2.0 [facility] GRAN # 5.4 K/mm3 2.0-8.00 [facility] IG# 0.0 K/mm3 0.0-0.2 [facility] LYMPH # 2.6 K/mm3 1.0-5.0 [facility] MONO # 0.6 K/mm3 0.10-1.20 [facility] EOS # 0.1 K/mm3 0.0-0.5 [facility] BASO # 0.0 K/mm3 0.0-0.2 [facility] ID Date Data Source [id number] 05/22/2020 05:18:00 PM EDT [facility] ital TSYSORDER [id number] Name Value Range Interpretation Code Description Data Agnieszka rce(s) Supporting Document(s) URINE COLOR. [facility] URINE APPEARANCE SLIGHTY CLOUDY [facility] URINE GLUCOSE (UA) NEGATIVE mg/dL NEGATIVE [facility] URINE BILIRUBIN NEGATIVE NEGATIVE [facility] URINE KETONE 5(TRACE) mg/dL [facility]IVE [facility] SPECIFIC GRAVITY,URINE 1.010 1.001-1.035 [facility] 05/22/20 1725: SG previously reported a s: 1.025 URINE BLOOD NEGATIVE NEGATIVE [facility] 05/22/20 1726: BLOOD previously reporte d as: TRACE H @Manual Entery of ALL Results have been Rechecked @By TRACEY on 05/22/20 @ 7609. PH,URINE 5.0 5.0-9.0 [facility] 05/22/20 1726: PH previously reported a s: 6.0 URINE PROTEIN NEGATIVE mg/dL NEGATIVE [facility] 05/22/20 1726: PROT previously reported as: 1+(30) H mg/dL URINE UROBILINOGEN NORMAL(0.2-1) mg/dL 0-1 [facility] URINE NITRATE NEGATIVE NEGATIVE [facility] URINE LEUKOCYTE ESTERASE NEGATIVE NEGATIVE [facility] 05/22/20 1727: LEUK ABIGAIL previously re ported as: TRACE ID Date Data Source [id number] 04/23/2020 09:52:00 AM EDT [facility] l DATE OF EXAMINATION: 04/23/2020 8:48 EDT U S ABDOMINAL COMPLETE COMPARED TO: No priors HISTORY: Abdominal pain Real-time ultrasound imaging was performed utilizing B-mode/gross scale and colorDoppler imaging where applicable. The liver displays a normal homogeneous echotexture throughout. There is nointra or extrahepatic biliary dilation. The gallbladder appears normal,revealing no signs of gallstones or gallbladder wall thickening. The common bileduct measures 7mm. The right kidney measures 11.2cm and the left kidney oyoszzkk32.2cm longitudinally. Both kidneys display normal homogeneous echotexturethroughout and show no hydronephrosis. The visualized portions of the pancreas,spleen, the abdominal aorta and IVC are normal in appearance. IMPRESSION: Normal abdominal sonogram. Electronically signed in PS360 by: Nadeem Juárez M.D. 04/23/2020 9:46 EDT Name Value Range Interpretation Code Description Data Agnieszka rce(s) Supporting Document(s) ID Date Data Source FREE T4 04/19/2020 11:31:44 AM EDT eCW1 ([facility]) Name Value Range Interpretation Code Description Data Agnieszka rce(s) Supporting Document(s) 1.24 FREE T4 eCW1 ([facility]) ID Date Data Source HGBA1C 04/19/2020 11:31:33 AM EDT eCW1 ([facility]) Name Value Range Interpretation Code Description Data Agnieszka rce(s) Supporting Document(s) Hemoglobin A1c/Hemoglobin.total in Blood 5.7 HGBA1C eCW1 ([facility]) ID Date Data Source TSH 04/19/2020 11:31:24 AM EDT eCW1 ([facility]) Name Value Range Interpretation Code Description Data Agnieszka rce(s) Supporting Document(s) 1.50 TSH eCW1 ([facility]) ID Date Data Source [id number] 04/19/2020 10:03:00 AM EDT [facility] l Name Value Range Interpretation Code Description Data Agnieszka rce(s) Supporting Document(s) TSH 1.50 uIU/mL 0.36-3.74 [facility] ID Date Data Source [id number] 04/19/2020 10:03:00 AM EDT [facility] Name Value Range Interpretation Code Description Data Agnieszka rce(s) Supporting Document(s) FREE T4 1.24 ng/dL 0.76-1.46 [facility] ID Date Data Source [id number] 04/19/2020 09:17:00 AM EDT [facility] l Name Value Range Interpretation Code Description Data Agnieszka rce(s) Supporting Document(s) HGBA1C 5.7 % 3.8-5.6 H [facility] Diabetic > or = to 6.5%Prediabetes 5.7-6 .4%Normal <5.7 ID Date Data Source [id number] 04/19/2020 09:17:00 AM EDT [facility] l Name Value Range Interpretation Code Description Data Agnieszka rce(s) Supporting Document(s) ESTIMATED AVERAGE GLUCOSE 116.9 mg/dL [facility] ID Date Data Source [id number] 02/27/2020 08:02:00 AM EDT [facility] Specimen Comment: Source.............End ocervixSpecimen Comment: No. of containers..01 ThinPrep Vial Name Value Range Interpretation Code Description Data Agnieszka rce(s) Supporting Document(s) REFLEX PAP Comment . [facility] The HPV DNA reflex criteria were not met with this specimenresult therefore, no HPV testing was performed.Performed at: [address] [id number] Director: Joel Mina MD, Phone: [phone] DIAGNOSIS: Comment . [facility] NEGATIVE FOR INTRAEPITHELIAL LESION OR M ALIGNANCY.THIS SPECIMEN WAS RESCREENED PART OF OUR PRESCRIPTION EYEGLASS MAKER PROGRAM. SPECIMEN ADEQUACY: Comment . [facility] Satisfactory for evaluation. No endocer vical component is identified.The absence of an endocervical component was confirmed by an additionalscreening evaluation. PERFORMED BY: Comment . [facility] Yolanda Salinas Security Systems Administrator (ASCP) QC REVIEWED BY: Comment . [facility] Miguel Briggs Security Systems Administrator (ASCP ) . . . [facility] NOTE: Comment . [facility] The Pap smear is a screening test design ed to aid in thedetection of premalignant and malignant conditions of theuterine cervix. It is not a diagnostic procedure andshould not be used as the sole means of detecting cervicalcancer. Both false-positive and false-negative reports dooccur. ID Date Data Source [id number] 02/28/2020 02:05:00 PM EDT [facility] Name Value Range Interpretation Code Description Data Agnieszka rce(s) Supporting Document(s) IGP,rfx Aptima HPV Wheelz You TESTS RESULT FLAG UNI TS REF RANGE LAB Clinician Provided Cytology Information Source.............Endocervix No. of containers..01 ThinPrep VialDIAGNOSIS: 01 NEGATIVE FOR INTRAEPITHELIAL LESION OR MALIGNANCY. THIS SPECIMEN WAS RESCREENED PART OF OUR PRESCRIPTION EYEGLASS MAKER PROGRAM.Specimen adequacy: 01 Satisfactory for evaluation. No endocervical component is identified. The absence of an endocervical component was confirm ed by an additional screening evaluation.Performed by: 01 Yolanda Salinas Security Systems Administrator (ASCP)QC reviewed by: Galina Briggs Security Systems Administrator (ASCP). 01Note: Note 01 The Pap smear is a screening test designed to aid in the detection of premalignant and malignant conditions of the uterine cervix. It is not a diagnostic procedure and should not be used as the sole means of detecting cervical cancer. Both false-positive and false-negative reports do occur. Test Methodology: Note 01 This liquid based ThinPrep(R) pap test was screened with the use of an image guided system.. 01 The HPV DNA reflex criteria were not met with this specimen result therefore, no HPV testing was performed. FLAG LEGEND: L-Low Normal,H-High Normal,LL-Alert Low,HH-Alert High <-Panic Low,>-Panic High,A-Abnormal,AA-Critical Abnormal Performed at:[address] [id number] Joel Mina MD, ID Date Data Source [id number] 02/12/2020 11:44:00 AM EDT [facility] DATE OF EXAMINATION: 02/12/2020 9:52 EDT MAMMO SCREEN BILAT WITH CAD HISTORY: Screening Based on the personal and family history information your patient supplied atthe time of imaging, her lifetime risk of breast cancer estimated date by theTyrer-Cuzick model is 8.5%. If anything changes in the personal and/or familyhistory this percentage could increase or decrease. Currently, NCCN and ACSrecommended adjunctive breast MRI screening starting at age 30 for women with a> 20-25% lifetime risk of developing breast cancer. Comparison is made to prior study dated 02/08/2019. 2-D bilateral digital mammogram in the CC and MLO planes were performed withsupplemental 3-D tomosynthesis of both breasts. The images were analyzed through the latest version of the [employer] computer animator ddiagnosis system. The patient states that her last clinical breast examination was 02/09/2020. Craniocaudal and oblique lateral views of the breasts were obtained. Thebreasts are almost entirely fatty. There is no dominant mass, suspiciousclustered calcification, or architectural distortion. IMPRESSION: No mammographic evidence of malignancy. BiRAD 1 - Negative, Routine Yearly Mammographic Follow-up Recommended. 10-15% of cancers are not identified by mammography. This usually occurs whenthe mass is of the same radiographic density as the surrounding breast tissue,emphasizing the importance of breast self examination (BSE) and physicalexamination. A normal mammogram should not delay biopsy if a suspicious mass orabnormal findings are present upon physical examination. Electronically signed in [id number] by: Nadeem Juárez M.D. 02/12/2020 11:38 EDT Name Value Range Interpretation Code Description Data Agnieszka rce(s) Supporting Document(s) ID Date Data Source [id number] 01/26/2020 08:06:00 AM EDT [facility] Name Value Range Interpretation Code Description Data [facility] rce(s) Supporting Document(s) Vitamin D, 25-Hydroxy 63.8 ng/mL 30.0-100.0 [facility] Vitamin D deficiency has been defined by the [place] of[place]icine and an Endocrine Society practice guideline as alevel of serum 25-OH vitamin D less than 20 ng/mL (1,2).The Endocrine Society went on to further define vitamin Dinsufficiency as a level between 21 and 29 ng/mL (2).1. IOM ([place] of [employer]). 2010. Dietary reference intakes for calcium and D. [place]: The National Academies Press.2. Laurel MF, Moo ELLINGTON, Vinod ALARCON, et al. Evaluation, treatment, and prevention of vitamin D deficiency: an Endocrine Society clinical practice guideline. JCEM. 2010; 96(7):1911-30. ID Date Data Source [id number] 01/26/2020 08:06:00 AM EDT [facility] Name Value Range Interpretation Code Description Data Agnieszka rce(s) Supporting Document(s) VITAMIN D, 25-HYDROXY 63.8 ng/mL 30.0-100.0 [facility] Vitamin D deficiency has been defined by the [place] of[place] and an Endocrine Society practice guideline as alevel of serum 25-OH vitamin D less than 20 ng/mL (1,2).The Endocrine Society went on to further define vitamin Dinsufficiency as a level between 21 and 29 ng/mL (2).1. IOM ([place] of [employer]). 2010. Dietary reference intakes for calcium and D. [place]: The National Academies Press.2. Laurel MF, Moo [place], Vinod ALARCON, et al. Evaluation, treatment, and prevention of vitamin D deficiency: an Endocrine Society clinical practice guideline. JCEM. 2010; 96(7):1911- 30.Performed at: RN - [facility] [address] [id number] Director: Eva Crump MD, Phone: [phone] ID Date Data Source [id number] 01/25/2020 10:17:00 AM EDT [facility] Name Value Range Interpretation Code Description Data Agnieszka rce(s) Supporting Document(s) FREE T4 0.94 ng/dL 0.76-1.46 [facility] ID Date Data Source [id number] 01/25/2020 10:17:00 AM EDT [facility] Name Value Range Interpretation Code Description Data Agnieszka rce(s) Supporting Document(s) TSH 2.87 uIU/mL 0.36-3.74 [facility] ID Date Data Source [id number] 01/25/2020 10:06:00 AM EDT [facility] Name Value Range Interpretation Code Description Data Agnieszka rce(s) Supporting Document(s) CHOLESTEROL 186 mg/dL 0-200 [facility] TRIGLYCERIDES 106 mg/dL 0-150 [facility] LDL CHOLESTEROL 119 mg/dL 0-100 H [facility] HDL CHOLESTEROL 46 mg/dL 40-60 [facility] CHOL/HDL RATIO 4.0 0.0-5.0 [facility] ID Date Data Source [id number] 01/25/2020 10:06:00 AM EDT [facility] Name Value Range Interpretation Code Description Data Agnieszka rce(s) Supporting Document(s) GLUCOSE 101 mg/dL 74-106 [facility] BLOOD UREA NITROGEN 12 mg/dL 7-18 [facility] ital CREATININE 0.9 mg/dL 0.6-1.0 [facility] SODIUM 140 mmol/L 136-145 [facility] POTASSIUM 3.9 mmol/L 3.5-5.1 [facility] CHLORIDE 103 mmol/L 98-107 [facility] CO2 27 mmol/L 21-32 [facility] CALCIUM 8.7 mg/dL 8.5-10.1 [facility] ANION GAP 10.0 mmol/L 5-12 [facility] GLOMERULAR FILTRATION RATE 68 mL/min [facility] GFR IS CALCULATED IN mL/min/1.73m2 VICENTA L FUNCTION: >90MILDLY DECREASED: 60-89MILDY TO MODERATELY DECREASED: 45-59 MODERATELY TO SEVERELY DECREASED: 30-44SEVERELY DECREASED: 15-29RENAL FAILURE: <15 ID Date Data Source [id number] 01/25/2020 10:05:00 AM EDT [facility] Name Value Range Interpretation Code Description Data Agnieszka rce(s) Supporting Document(s) ESTIMATED AVERAGE GLUCOSE 114.0 mg/dL [facility] ID Date Data Source [id number] 01/25/2020 10:05:00 AM EDT [facility] Name Value Range Interpretation Code Description Data Agnieszka rce(s) Supporting Document(s) HGBA1C 5.6 % 3.8-5.6 [facility] Diabetic > or = to 6.5%Prediabetes 5.7-6 .4%Normal <5.7 ID Date Data Source [id number] 09/26/2019 05:00:00 PM EST [facility] DATE OF EXAMINATION: 09/26/2019 16:02 EST TECHNIQUE: 1 views of the abdomen were obtained. HISTORY: Irritable bowel syndrome The intra-abdominal bowel gas pattern is nonspecific with no evidence forobstruction. No abnormal calcifications are identified within the abdomen. Noevidence for organomegaly or ascites is noted. No free intraperitoneal air is noted. IMPRESSION: Unremarkable abdomen exam. (There is a single metallic staple in the lefthemipelvis. Electronically signed in [id number] by: Nadeem Juárez M.D. 09/26/2019 16:54 EST Name Value Range Interpretation Code Description Data Agnieszka rce(s) Supporting Document(s) ID Date Data Source [id number] 09/26/2019 04:36:00 PM EST [facility] Name Value Range Interpretation Code Description Data Agnisezka rce(s) Supporting Document(s) FREE T4 1.24 ng/dL 0.76-1.46 [facility] ID Date Data Source [id number] 09/26/2019 04:36:00 PM EST [facility] Name Value Range Interpretation Code Description Data Agnieszka rce(s) Supporting Document(s) TSH 1.35 uIU/mL 0.36-3.74 [facility] ID Date Data Source [id number] 09/26/2019 04:27:00 PM [facility] Name Value Range Interpretation Code Description Data Agnieszka rce(s) Supporting Document(s) GLUCOSE 90 mg/dL 74-106 [facility] BLOOD UREA NITROGEN 16 mg/dL 7-18 [facility] ital CREATININE 1.0 mg/dL 0.6-1.0 [facility] SODIUM 140 mmol/L 136-145 [facility] POTASSIUM 3.9 mmol/L 3.5-5.1 [facility] CHLORIDE 102 mmol/L 98-107 [facility] CO2 28 mmol/L 21-32 [facility] CALCIUM 9.4 mg/dL 8.5-10.1 [facility] ANION GAP 10.0 mmol/L 5-12 [facility] GLOMERULAR FILTRATION RATE 61 mL/min [facility] GFR IS CALCULATED IN mL/min/1.73m2 VICENTA L FUNCTION: >90MILDLY DECREASED: 60-89MILDY TO MODERATELY DECREASED: 45-59 MODERATELY TO SEVERELY DECREASED: 30-44SEVERELY DECREASED: 15-29RENAL FAILURE: <15 AST 18 U/L 15-37 [facility] ALT 24 U/L 12-78 [facility] ALKALINE PHOSPHATASE 90 U/L 46-116 [facility] pital TOTAL BILIRUBIN 0.2 mg/dL 0.2-1.0 [facility] TOTAL PROTEIN 7.8 g/dl 6.4-8.2 [facility] ALBUMIN 4.4 gm/dL 3.4-5.0 [facility] ID Date Data Source [id number] 09/26/2019 03:59:00 PM [facility] Name Value Range Interpretation Code Description Data [facility] rce(s) Supporting Document(s) WHITE BLOOD COUNT 10.4 K/mm3 4.0-10.0 [facility] yunior RED BLOOD COUNT 4.43 M/mm3 4.00-5.50 [facility] HEMOGLOBIN 14.0 gm/dL 12.0-16.0 [facility] HEMATOCRIT 41.1 % 36.0-48.8 [facility] MEAN CELL VOLUME 92.8 fl 80-96 [facility] MEAN CORPUSCULAR HEMOGLOBIN 31.6 pg 27.0-31.0 H [facility] MEAN CORPUSCULAR HGB CONC 34.1 g/dl 32.0-36.0 [facility] RED CELL DISTRIBUTION WIDTH 12.2 % 10.0-14.5 [facility] PLATELET COUNT 359 K/mm3 172-450 [facility] MEAN PLATELET VOLUME 9.4 fl 9.0-13.0 [facility] pital GRAN % 60.0 % 50-80.0 [facility] IG% 0.2 % 0.0-0.2 [facility] LYMPH % 30.4 % 25.0-50.0 [facility] MONO % 8.3 % 2.0-10.0 [facility] EOS % 0.5 % 0-5.0 [facility] BASO % 0.6 % 0.0-2.0 [facility] GRAN # 6.2 K/mm3 2.0-8.00 [facility] IG# 0.0 K/mm3 0.0-0.2 [facility] LYMPH # 3.2 K/mm3 1.0-5.0 [facility] MONO # 0.9 K/mm3 0.10-1.20 [facility] EOS # 0.1 K/mm3 0.0-0.5 [facility] BASO # 0.1 K/mm3 0.0-0.2 [facility] ID Date Data Source [id number] 09/26/2019 12:00:00 AM EST eCW1 ([facility]) Name Value Range Interpretation Code Description Data Agnieszka rce(s) Supporting Document(s) 10.4 4.0-10.0 WHITE BLOOD COUNT eCW1 ([facility]) 4.43 4.00-5.50 RED BLOOD COUNT eCW1 ([facility]) 14.0 12.0-16.0 HEMOGLOBIN eCW1 ([facility]) 92.8 80-96 MEAN CELL VOLUME eCW1 ([facility]) 41.1 36.0-48.8 HEMATOCRIT eCW1 ([facility]) 31.6 27.0-31.0 MEAN CORPUSCULAR HEMOGLOB IN eCW1 ([facility]) 34.1 32.0-36.0 MEAN CORPUSCULAR HGB CONC eCW1 ([facility]) 359 172-450 PLATELET COUNT eCW1 ([facility]) 12.2 10.0-14.5 RED CELL DISTRIBUTION WID TH eCW1 ([facility]) 60.0 50-80.0 GRAN % eCW1 ([facility]) 9.4 9.0-13.0 MEAN PLATELET VOLUME eCW1 ([facility]) 30.4 25.0-50.0 LYMPH % eCW1 ([facility]) 8.3 2.0-10.0 MONO % eCW1 ([facility]) 0.5 0-5.0 EOS % eCW1 ([facility]) 0.6 0.0-2.0 BASO % eCW1 ([facility]) 6.2 2.0-8.00 GRAN # eCW1 ([facility]) 3.2 1.0-5.0 LYMPH # eCW1 ([facility]) 0.1 0.0-0.5 EOS # eCW1 ([facility]) 0.9 0.10-1.20 MONO # eCW1 ([facility]) 0.1 0.0-0.2 BASO # eCW1 ([facility]) Procedure Social History Code Duration Value Status Description Data Source(s ) Smoking 07/25/2020 12:00:00 AM EST Current Smoker completed Curre nt Smoker eCW1 ([facility]) Smoking 05/27/2020 12:00:00 AM EDT Current Smoker completed Curre nt Smoker eCW1 ([facility]) Smoking 05/27/2020 12:00:00 AM EDT Current Smoker completed Curre nt Smoker eCW1 ([facility]) Smoking 04/19/2020 12:00:00 AM EDT Current Smoker completed Curre nt Smoker eCW1 ([facility]) Smoking 04/19/2020 12:00:00 AM EDT Current Smoker completed Curre nt Smoker eCW1 ([facility]) Smoking 02/26/2020 12:00:00 AM EDT Current Smoker completed Curre nt Smoker eCW1 ([facility]) Smoking 01/24/2020 12:00:00 AM EDT Current Smoker completed Curre nt Smoker eCW1 ([facility]) Vital Signs ID Date Data Source UNK Name Value Range Interpretation Code Description Data Source(s) Body surface area Derived from formula 1.81 m2 1.81 m2 [facility] ([facility]) Body weight 75.298 kg 75.298 kg [facility] ([facility]) [place] body weight 120 [lb_av] 120 [lb_av] MEDEN T ([facility]) Body mass index (BMI) [Ratio] 28.5 kg/m2 28.5 k g/m2 [facility] ([facility]) Body weight 166.00 [lb_av] 166.00 [[facility]_av] [facility] Body height 64 [in_i] 64 [in_i] [facility] ([facility]) 5'4" Diastolic blood pressure 74 mm[Hg] 74 mm[Hg] [facility] ([facility]) Systolic blood pressure 132 mm[Hg] 132 mm[Hg] [facility] Oxygen saturation in Arterial blood by Pulse oximetry 97 % 97 % eCW1 ([facility]) Respiratory rate 18 /min 18 /min eCW1 ([facility]) Heart rate 74 /min 74 /min eCW1 ([facility]) Body temperature 98.5 [degF] 98.5 [degF] eCW1 ( [facility]) Body mass index (BMI) [Ratio] 29.59 kg/m2 29.59 kg/m2 eCW1 ([facility]) Body weight 172.4 [lb_av] 172.4 [lb_av] eCW1 ([facility]) Body height 64 [in_i] 64 [in_i] eCW1 ([facility]) Oxygen saturation in Arterial blood by Pulse oximetry 99 % 99 % eCW1 ([facility]) Respiratory rate 18 /min 18 /min eCW1 ([facility]) Heart rate 76 /min 76 /min eCW1 ([facility]) Body temperature 98.2 [degF] 98.2 [degF] eCW1 ( [facility]) Body mass index (BMI) [Ratio] 31.44 kg/m2 31.44 kg/m2 eCW1 ([facility]) Body weight 183.2 [lb_av] 183.2 [lb_av] eCW1 ([facility]) Body height 64 [in_i] 64 [in_i] eCW1 ([facility]) Oxygen saturation in Arterial blood by Pulse oximetry 98 % 98 % eCW1 ([facility]) Respiratory rate 18 /min 18 /min eCW1 ([facility]) Heart rate 66 /min 66 /min eCW1 ([facility]) Body temperature 98.4 [degF] 98.4 [degF] eCW1 ( [facility]) Body mass index (BMI) [Ratio] 34.39 kg/m2 34.39 kg/m2 eCW1 ([facility]) Body weight 200.4 [lb_av] 200.4 [lb_av] eCW1 ([facility]) Body height 64 [in_i] 64 [in_i] eCW1 ([facility]) Oxygen saturation in Arterial blood by Pulse oximetry 98 % 98 % eCW1 ([facility]) Respiratory rate 18 /min 18 /min eCW1 ([facility]) Heart rate 75 /min 75 /min eCW1 ([facility]) Body temperature 98.2 [degF] 98.2 [degF] eCW1 ( [facility]) Body mass index (BMI) [Ratio] 34.22 kg/m2 34.22 kg/m2 eCW1 ([facility]) Body weight 199.4 [lb_av] 199.4 [lb_av] eCW1 ([facility]) Body height 64 [in_i] 64 [in_i] eCW1 ([facility]) Deprecated Oxygen saturation in Capillary blood by Oximetry 96 % 96 % eCW1 ([facility]) Respiratory rate 18 /min 18 /min eCW1 ([facility]) Heart rate 85 /min 85 /min eCW1 ([facility]) Body temperature 98.2 [degF] 98.2 [degF] eCW1 ( [facility]) Body mass index (BMI) [Ratio] 35.22 kg/m2 35.22 kg/m2 eCW1 ([facility]) Body weight Measured 205.2 [lb_av] 205.2 [lb_av ] eCW1 ([facility]) Body height 64 [in_us] 64 [in_us] eCW1 ([facility]) Patient Treatment Plan of Care Planned Activity Planned Date Details Description Data Source (s) Hydroxyzine Hydrochloride 25 MG Oral Tablet 06/05/2020 12:00:00 AM EDT eCW1 ([facility]) Hydroxyzine Hydrochloride 25 MG Oral Tablet 06/05/2020 12:00:00 AM EDT eCW1 ([facility]) Lisinopril 10 MG Oral Tablet 05/27/2020 12:00:00 AM EDT eCW1 ([facility]) Lisinopril 10 MG Oral Tablet 05/27/2020 12:00:00 AM EDT eCW1 ([facility]) Nicotine 2 MG Chewing Gum 01/24/2020 12:00:00 AM EDT eCW1 ([facility]) Trazodone Hydrochloride 50 MG Oral Tablet 11/27/2019 12:00:00 AM ED T eCW1 ([facility]) Trazodone Hydrochloride 50 MG Oral Tablet 11/27/2019 12:00:00 AM ED T eCW1 ([facility])
--- OUTSIDE RECORDS SUMMARY | 2020-10-07 08:50 | CCD | Continuity of Care Document ---
Author Author [facility] Organization Unknown Address [address], [address] [place] [address] Phone [phone] Care Team Providers Care Special Effects Designer Name Role Phone Fátima Perez AUTM [phone] Problems Description No Active Problems Social History Type Date Description Comments Sex Unknown ETOH Use 6 A Week Tobacco Use Start: Unknown Report Cessation Counseling Was Provided Tobacco Use Start: Unknown Smokes 1 Pack A Day Allergies, Adverse Reactions, Alerts Description No Known Drug Allergies Medications Active Medications SIG Qnty Indications Ordering Provide r Date Suprep Bowel Prep Kit 17.5-3.13-1.6GM/177ML Solution take per doctor's bowel prep instructions. 354ml Z12.1 1 Priyank Fisher MD 07/30/2020 Magnesium Citrate 1.745GM/30ML Shanti ution take one 10 ounce bottle prior to procedure for additional bowel prep per instructions. 296ml Z12.11 Priyank Fisher MD 07/30/2020 Aspir-[address] vega y Unknown Vitamin D 2000Unit Tablets 1 tab by mouth daily Unknown Omeprazole 20mg Capsules DR 20 mg by mouth daily Unknown Ibuprofen 600mg Tablets 1 tablet every 8 hours as needed for pain Unknown 000 Lexapro 20mg Tablets 1 by mouth every day Unknown Levothyroxine Sodium 50mcg Tablets 1 by mouth every day Unknown Lisinopril 10mg Tablets [address] Unknown Ezetimibe 10mg Tablets daily Unknown Dicyclomine HCL 20mg Tablets bid Unknown Vitamin D (Ergocalciferol) 1.25mg (44198 Ut) Capsules every week Unknown Simvastatin 40mg Tablets 1 by mouth every day Unknown Hydroxyzine HCL 25mg Tablets prn Unknown Immunizations Description No Information Available Vital Signs Date Vital Result Comment 07/30/2020 2:31pm BP Systolic 132 mmHg BP Diastolic 74 mmHg Height 64 inches 5'4" Weight 166.00 lb BMI (Body Mass Index) 28.5 kg/m2 Gervais Body Weight 120 lb Weight 75.298 kg BSA (Body Surface Area) 1.81 m2 07/06/2017 2:10pm BP Systolic 137 mmHg BP Diastolic 86 mmHg Height 64 inches 5'4" Weight 196.00 lb BMI (Body Mass Index) 33.6 kg/m2 Gervais Body Weight 120 lb Weight 88.906 kg BSA (Body Surface Area) 1.94 m2 Results Description No Information Available Procedures Description No Information Available Medical Devices Description No Information Available Encounters Description No Information Available Assessments Date Code Description Provider 07/30/2020 Z12.11 Encounter for screening for janiya gnant neoplasm of colon Kay Ludivina RENALDO Stone 07/30/2020 Z86.010 Personal history of colonic poly ps Kay Ludivina RENALDO Stone 07/30/2020 Z80.0 Family history of malignant neop lasm of digestive organs RENALDO [place] Plan of Treatment 07/30/2020 - Kay Florence RENALDO Stone* Z12.11 Encounter for screening for malignant neoplasm of colon * Z86.010 Personal history of colonic polyps * Z80.0 Family history of malignant neoplasm of digestive organs * * New Medication:* Suprep Bowel Prep Kit 17.5-3.13-1.6 GM/177ML * Magnesium Citrate 1.745 GM/30ML * New Orders:* Colonoscopy, Ordered: 07/30/20 * Comments:* Will arrange for colonoscopy. Reviewed risks and benefits of the procedure, as well as other options, with the patient. Bowel prep procedure was discussed with patient, as well as risks and side effects associated with the bowel prep. Patient verbalized understanding of all of the above and is in agreement to proceed. Patient will seek medical attention for any acute changes. Will monitor. * Follow up:* As scheduled, sooner if needed. Functional Status Description No Information Available Mental Status Description No Information Available Referrals Description No Information Available
--- OUTSIDE RECORDS SUMMARY | 2020-10-07 08:50 | CCD ---
Author Author [facility] Organization [facility] Address Unknown Phone Unavailable Care Team Providers Care Rip Tailer Name Role Phone [place] Unavailable PROBLEMS Type Condition ICD9-CM Code RYZ19-TU Code Onset Dates Condition S tatus SNOMED Code Notes Problem Hyperlipidemia E78.5 Active 62677733 Problem Vitamin D deficiency E55.9 Active 49867440 Problem Tobacco use Z72.0 Active 759308625 Problem Irritable bowel syndrome with constipation K58.1 Active 481428022 Problem Essential hypertension I10 Active 69585117 Problem Gastroesophageal reflux disease without esophagitis K21.9 Active 676646628 Problem Hypothyroidism E03.9 Active 95985258 Problem Learning disability F81.9 Active 4086679 Problem Psoriasis L40.9 Active 4699173 ALLERGIES No Known Allergies ENCOUNTERS from 1975 to 2020-07-25 Encounter Location Date Provider Diagnosis [address] [address] Jul, Fátima Perez IMMUNIZATIONS No Information SOCIAL HISTORY Tobacco Use: Social History Observation Description Date Details (start date - stop date) Current Smoker Sex Assigned At : Social History Observation Description Sex Assigned At Unknown Alcohol Screen Question Answer Notes Did you have a drink containing alcohol in the past year? No Points 0 Interpretation Negative Tobacco Use/Smoking Question Answer Notes Are you a current smoker REASON FOR REFERRAL No Information VITAL SIGNS No information MEDICATIONS Medication SIG (Take, Route, Frequency, Duration) Notes Start Da te End Date Status Vitamin D3 2000 UNIT TAKE ONE CAPSULE BY MOUTH DAILY for 90 Active Omeprazole 20 MG 1 capsule Orally prn for 90 Active Lisinopril 10 MG 2 tablet Orally Once a day May, Active Levothyroxine Sodium 50 MCG 1 tablet Orally Once a day for 90 Active Nicotine 2 MG 1 piece for 30 minute as nee ded every 1-2 hours Mouth/Throat 24 time(s) a day for 30 days Jan, Active Zetia 10 MG 1 tablet Orally Once a day for 90 Active Trazodone HCl 50 MG 1-2 tablets at bedtime as ne eded Orally Once a day for 30 day(s) Nov, Not-Taking Vitamin D3 50 MCG (2000 UT) TAKE ONE CAPSULE BY MOUTH EVERY DAY for 9 0 Active Dicyclomine HCl 20 MG 1 tabs Orally twice a day Active Ibuprofen 600 MG 1 tablet Orally Three times a day prn for 60 Not-Taking Aspirin 81 MG take one tablet by mouth every day Orally Once a day fo r 90 Active Vitamin D (Ergocalciferol) 74048 UNIT 1 capsule Orally for 90 da ys Feb, Active Simvastatin 40 MG 1 tablet in the evening Orally Once a day for 90 Active Lexapro 20 MG TAKE ONE TABLET BY MOUTH EVERY DAY for 90 Active PROCEDURES No Information RESULTS No Results REASON FOR VISIT telehealth appointment 07/25/2020 MEDICAL (GENERAL) HISTORY Type Description Date Medical History GERD Medical History Depression Medical History Anxiety Medical History IBS Medical History Headaches Medical History Lower Extremity Edema Medical History Prediabetes Medical History HTN Surgical History Surgical History BTL Surgical History Colonoscopy and Endoscopy Dr Fisher 2016 Hospitalization History Surgical needs Goals Section No Information Health Concerns No Information MEDICAL EQUIPMENT No Information MENTAL STATUS No Information FUNCTIONAL STATUS No Information ASSESSMENTS No Information PLAN OF TREATMENT Next Appt Details Provider Name:Malou Britton, 02:00:00 PM, [address] [place] [address], [phone], Insurance Providers Payer Name Payer Address Payer Phone Insured Name Patient Relati onship to Insured Coverage Start Date Coverage End Date [employer] CLAIMS DEPT [address] [address] [facility] [phone] Kay Pearson
--- NOTE | 2020-10-07 10:46 | ROOR ---
Patient Name: Kay Pearson Procedure Date: 10/07/2020 10:24 AM Date of : 1975 Age: 45 Room: [facility] Gender: Female Note Status: Finalized Procedure: Colonoscopy Indications: High risk colon cancer surveillance: Personal history of colonic polyps, Family history of colon cancer Providers: Priyank FISHER MD Referring MD: Malou CHRISTIAN NP Requesting Provider: Medicines: Monitored Anesthesia Care Complications: No immediate complications. Procedure: Pre-Anesthesia Assessment: - The heart rate, respiratory rate, oxygen saturations, blood pressure, adequacy of pulmonary ventilation, and response to care were monitored throughout the procedure. The Colonoscope was introduced through the anus and advanced to the cecum, identified by appendiceal orifice and ileocecal valve. The colonoscopy was performed without difficulty. The patient tolerated the procedure well. The quality of the bowel preparation was good. Findings: The perianal and digital rectal examinations were normal. A diminutive polyp was found in the mid ascending colon. The polyp was sessile. The polyp was removed with a jumbo cold forceps. Resection and retrieval were complete. To prevent bleeding after the polypectomy, one hemostatic clip was successfully placed. There was no bleeding at the end of the procedure. Small Internal Hemorrhoids. The exam was otherwise without abnormality on direct and retroflexion views. Impression: - One diminutive polyp in the mid ascending colon, removed with a jumbo cold forceps. Resected and retrieved. Clip was placed. - Small Internal Hemorrhoids. - The examination was otherwise normal on direct and retroflexion views. Recommendation: - Repeat colonoscopy in 5 years for surveillance. Procedure Code(s): --- Professional --- 23006, Colonoscopy, flexible; with biopsy, single or multiple Diagnosis Code(s): --- Professional --- Z80.0, Family history of malignant neoplasm of digestive organs K63.5, Polyp of colon Z86.010, Personal history of colonic polyps CPT copyright 2019 [employer]. All rights reserved. The codes documented in this report are preliminary and upon animation artist review may be revised to meet current compliance requirements. Priyank Fisher MD Priyank FISHER MD 10/07/2020 10:46:37 AM Electronically signed by Priyank FISHER MD Number of Addenda: 0 Note Initiated On: 10/07/2020 10:24 AM Estimated Blood Loss: Estimated blood loss: none.
[2020-10-07 11:05] VITALS: BP 103/64
== END 2020-10-07 11:12 | disposition home or self-care (01) ==
LOC: M OPP 08:45
PROVIDERS: ATTEND Internal Medicine Gastroenterology
DX: Z12.11 Encounter for screening for malignant neoplasm of colon (principal); Z86.010 Personal history of colon polyps; Z80.0 Family history of malignant neoplasm of digestive organs; D12.2 Benign neoplasm of ascending colon; K64.8 Other hemorrhoids; I10 Essential (primary) hypertension; E78.5 Hyperlipidemia, unspecified; E03.9 Hypothyroidism, unspecified; K58.9 Irritable bowel syndrome, unspecified; F41.9 Anxiety disorder, unspecified; F32.9 Major depressive disorder, single episode, unspecified; K21.9 Gastro-esophageal reflux disease without esophagitis; F17.210 Nicotine dependence, cigarettes, uncomplicated; Z79.82 Long term (current) use of aspirin; Z79.899 Other long term (current) drug therapy; Z83.3 Family history of diabetes mellitus; Z82.49 Family history of ischemic heart disease and other diseases of the circulatory system

== ENCOUNTER 2021-01-17 17:32 | Emergency (ER) | payer OTHER ==
[~2021-01-17] VITALS: Ht 162.6 cm; Wt 71.9 kg
[~2021-01-17 17:32] MED LIST changes: -LIDOCAINE 2% 100MG/5ML SDV (FOR ANES.) As Ordered ONE; -NS 1,000 ML IV ONE; -propofoL 200 MG/20 ML VIAL As Ordered ONE
[2021-01-17 17:34] VITALS: BP 157/95
[2021-01-17 19:41] LABS: BASO # 0.1 10^3/uL (0.0-0.2); BASO % 0.7 % (0.0-1.0); EOS # 0.1 10^3/uL (0.0-0.5); EOS % 1.3 % (0.0-3.0); HEMATOCRIT 42.3 % (36.0-47.0); HEMOGLOBIN 14.6 g/dl (12.0-15.5); LYMPH # 3.3 10^3/uL (1.5-5.0); LYMPH % 30.7 % (24.0-44.0); MEAN CORPUSCULAR HEMOGLOBIN 33.3 pg (27.0-33.0); MEAN CORPUSCULAR HGB CONC 34.5 g/dl (32.0-36.5); MEAN CORPUSCULAR VOLUME 96.6 fl (80.0-96.0); MONO # 0.8 10^3/uL (0.0-0.8); MONO % 7.6 % (2.0-8.0); NEUTROPHILS # 6.3 10^3/uL (1.5-8.5); NEUTROPHILS % 59.4 % (36.0-66.0); PLATELET COUNT, AUTOMATED 329 10^3/uL (150-450); RED BLOOD COUNT 4.38 10^6/uL (4.00-5.40); WHITE BLOOD COUNT 10.6 10^3/uL (4.0-10.0)
[2021-01-17 20:05] LABS: ALT/SGPT 19 U/L (12-78); BILIRUBIN,DIRECT 0.1 MG/DL (0.0-0.2); BILIRUBIN,TOTAL 0.5 MG/DL (0.2-1.0); BLOOD UREA NITROGEN 9 MG/DL (7-18); CALCIUM LEVEL 9.2 MG/DL (8.5-10.1); CARBON DIOXIDE LEVEL 25 MEQ/L (21-32); CHLORIDE LEVEL 108 MEQ/L (98-107); CREATININE FOR GFR 0.81 MG/DL (0.55-1.30); GLOMERULAR FILTRATION RATE > 60.0 (>58); GLUCOSE, FASTING 78 MG/DL (70-100); LIPASE 96 U/L (73-393); POTASSIUM SERUM 3.8 MEQ/L (3.5-5.1); SODIUM LEVEL 139 MEQ/L (136-145); TOTAL PROTEIN 7.3 GM/DL (6.4-8.2)
[2021-01-17] MEDS ORDERED: NORCO, ANEXSIA 5/325MG TABLET (HYDROcodone/ACETAMINOPHEN) PO ONE (20:10)
[2021-01-17 20:41] LABS: HCG, SERUM QUALITATIVE NEGATIVE (NEGATIVE)
--- NOTE | 2021-01-17 21:57 | REPVR ---
PROCEDURE INFORMATION: Exam: CT Abdomen and Pelvis without Contrast Exam date and time: 01/17/21 (8:46pm) Age: 45 years old Clinical indication: Generalized abdominal pain TECHNIQUE: Imaging protocol: Computed tomography of the abdomen and pelvis without contrast. Radiation optimization: All CT scans at this facility use at least one of these dose optimization techniques: automated exposure control; mA and/or kV adjustment per patient size (includes targeted exams where dose is matched to clinical indication); or iterative reconstruction. COMPARISON: US PELVIS of 01/17/21 FINDINGS: Liver: Normal. No solid mass. Gallbladder and bile ducts: Normal. No calcified stones. No ductal dilatation. Pancreas: Normal. No ductal dilatation. Spleen: Normal. No splenomegaly. Adrenal glands: Normal. No mass. Kidneys and ureters: No hydronephrosis. Punctate non-obstructing left lower pole calyceal stone. Stomach and bowel: Unremarkable. No bowel obstruction. No mucosal thickening. Appendix: No evidence of appendicitis. Intraperitoneal space: Unremarkable. No free air. No significant fluid collection. Vasculature: Unremarkable. No abdominal aortic aneurysm. Lymph nodes: Unremarkable. No enlarged lymph nodes. Urinary bladder: Unremarkable as visualized. Reproductive: Unremarkable as visualized. Probable left-sided tubal ligation clip (perhaps malpositioned or perhaps migrated) (needs correlation). Bones/joints: Unremarkable. No acute fracture. Soft tissues: Unremarkable. IMPRESSION: No acute findings. See additional comments above. Electronically signed by: Ivette Huang On 01/17/2021 21:57:19 PM
[2021-01-17] MEDS ORDERED: MACR100C43 PO (22:13)
[2021-01-17] MEDS ORDERED: PYRI1TAB5 PO (22:13)
[2021-01-17] MEDS ORDERED: PHENAZOPYRIDINE 100 MG TAB PO ONE (22:15)
[2021-01-17] MEDS ORDERED: NITROFURANTOIN (MACROBID) 100 MG CAP PO ONE (22:15)
--- NOTE | 2021-01-17 22:17 | REPVR ---
PROCEDURE INFORMATION: Exam: US Non-obstetric Pelvis; Complete (transabdominal and transvaginal) Exam date and time: 01/17/21 (8:23pm) Age: 45 years old Clinical indication: Vaginal bleeding. S/P endometrial ablation procedure (done approx. 7 years ago). TECHNIQUE: Imaging protocol: Transabdominal and transvaginal pelvic non-obstetric ultrasound. Complete examination. Real time ultrasound with image documentation. COMPARISON: No relevant prior studies available FINDINGS: S/P endometrial ablation procedure. The uterus is anteverted, with heterogeneous texture, measuring 7.9 x 4.5 x 4.6 cm in dimensions (difficult to penetrate). Small posterior fibroid (2.0 x 0.9 x 1.1 cm size) (1.3 cm avg. size). The right ovary measures 2.5 x 2.6 x 1.6 cm in size. The left ovary measures 3.1 x 1.7 x 1.8 cm in size. There is no evidence of ovarian torsion on Doppler evaluation. No free pelvic fluid is seen. No solid adnexal masses. IMPRESSION: No acute findings. Uterus is normal in size, with heterogeneous texture. S/P ablation procedure (done 7 years ago). Small posterior fibroid (1.3 cm avg. size) the. The ovaries are unremarkable, with no evidence of torsion. No free pelvic fluid. Electronically signed by: Ivette Huang On 01/17/2021 22:17:15 PM
== END 2021-01-17 22:42 | disposition home or self-care (01) ==
LOC: M ED 17:32
DX: D25.9 Leiomyoma of uterus, unspecified (principal); N39.0 Urinary tract infection, site not specified; I10 Essential (primary) hypertension; K58.9 Irritable bowel syndrome, unspecified; Z79.899 Other long term (current) drug therapy; Z79.890 Hormone replacement therapy; Z79.82 Long term (current) use of aspirin; F17.210 Nicotine dependence, cigarettes, uncomplicated

== ENCOUNTER 2021-02-04 11:55 | Inpatient (IN) | payer OTHER ==
[~2021-02-04] VITALS: Ht 162.6 cm; Wt 66.8 kg
[~2021-02-04 11:55] MED LIST changes: +ERGO500029 PO; +MACR100C43 PO; +PYRI1TAB5 PO; -VITA50005 PO
[2021-02-04 12:47] LABS: HEMOGLOBIN 14.9 g/dl (12.0-15.5); MEAN CORPUSCULAR HGB CONC 34.7 g/dl (32.0-36.5); MEAN CORPUSCULAR VOLUME 95.1 fl (80.0-96.0); PLATELET COUNT, AUTOMATED 369 10^3/uL (150-450); RED BLOOD COUNT 4.52 10^6/uL (4.00-5.40); WHITE BLOOD COUNT 7.6 10^3/uL (4.0-10.0)
[2021-02-04 13:23] LABS: AMPHETAMINES LEVEL URINE NEGATIVE (NEGATIVE); BARBITURATES URINE NEGATIVE (NEGATIVE); BENZODIAZEPINES URINE NEGATIVE (NEGATIVE); CANNABINOIDS URINE NEGATIVE (NEGATIVE); COCAINE METABOLITE URINE NEGATIVE (NEGATIVE); METHADONE URINE NEGATIVE (NEGATIVE); OPIATES URINE NEGATIVE (NEGATIVE); PHENCYCLIDINE URINE NEGATIVE (NEGATIVE)
[2021-02-04 14:10] LABS: HCG, SERUM QUALITATIVE NEGATIVE (NEGATIVE)
[2021-02-04 14:19] LABS: ACETAMINOPHEN LEVEL < 2.0 UG/ML (10.0-30.0); ALBUMIN 4.4 GM/DL (3.2-5.2); ALT/SGPT 60 U/L (12-78); BILIRUBIN,DIRECT < 0.1 MG/DL (0.0-0.2); BILIRUBIN,TOTAL 0.5 MG/DL (0.2-1.0); BLOOD UREA NITROGEN 14 MG/DL (7-18); CARBON DIOXIDE LEVEL 28 MEQ/L (21-32); CHLORIDE LEVEL 105 MEQ/L (98-107); CREATININE FOR GFR 0.98 MG/DL (0.55-1.30); ETHYL ALCOHOL (ETHANOL) 0.003 % (0.000-0.010); GLOMERULAR FILTRATION RATE > 60.0 (>58); GLUCOSE, FASTING 111 MG/DL (70-100); POTASSIUM SERUM 3.7 MEQ/L (3.5-5.1); SALICYLATE LEVEL 6.2 MG/DL (5.0-30.0); SODIUM LEVEL 137 MEQ/L (136-145); TOTAL PROTEIN 7.6 GM/DL (6.4-8.2)
[2021-02-04] MEDS ORDERED: MOM 30ML SUSPENSION UDC PO PRN (15:15)
[2021-02-04] MEDS ORDERED: IBUPROFEN 400MG TAB PO PRN (15:15)
[2021-02-04] MEDS ORDERED: traZODone 50 MG TAB PO PRN (15:15)
[2021-02-04] MEDS ORDERED: MAALOX 30 ML SUSP *UDC PO PRN (15:15)
[2021-02-04] MEDS ORDERED: hydrOXYzine 25 MG TAB PO PRN (16:00)
[2021-02-04] MEDS ORDERED: LEVO50TA5 PO (16:08)
[2021-02-04 16:34] LABS: RSV AMPLIFICATION NEGATIVE (NEGATIVE)
[2021-02-04 17:20] VITALS: BP 131/74
[2021-02-04] MEDS: traZODone 50 MG TAB PO SCH (20:28)
[2021-02-04] MEDS: ESCITALOPRAM OXALATE 10 MG TAB (LEXAPRO) PO SCH (20:28)
[2021-02-05] MEDS: LEVOTHYROXINE 50MCG TABLET (0.05MG) PO SCH (05:19)
[2021-02-05 06:00] VITALS: BP 148/88
[2021-02-05] MEDS: OLANZapine 5 MG TAB PO SCH ×2 (11:29→20:04)
--- NOTE | 2021-02-05 13:26 | HPEPDOC ---
[facility] Medical History & Physical Date of Admission Feb 04, 2021 Date of Service: Feb 05, 2021 Attending Physician: SAMANTHA CARTAGENA MD History and Physical CHIEF COMPLAINT: Depressed, delusions? HISTORY OF PRESENT ILLNESS: 45 yo W with a history of depression, anxiety, hypothyroidism, a chart history of HTN, HLD, GERD, IBS who was brought in by police after she called police reporting domestic disturbance and familial dispute but police found her alone while daughter had also called police reporting that patient had been threatening self and family harm, to which the patient denied. In the ED she was hemodynamically stable with grossly unremarkable lab evaluation and perserverated on her concern for her gall bladder and how it was causing her global pain and poor health although she was tolerating a normal diet and not unwell on evaluation. She reported discord with her family and thoughts that they were all out to get here c/w paranoid delusions and given that she had expressed SI and HI to both her daughter and police, she was admitted to [facility]. Medicine is now consulted for a medical H&P. She denies recently fever, chills, nausea, emesis, diarrhea. She then starts to speak about her gallbladder though she just denied any abdominal symptoms. PAST MEDICAL HISTORY: depression, anxiety, hypothyroidism, a chart history of HTN, HLD, GERD, IBS PAST SURGICAL HISTORY: C section Ablation? Tubal ligation EGD/colonoscopy SOCIAL HISTORY: Lives with her daughter No smoking, alcohol or illicit drugs FAMILY HISTORY: Carcinomas in father and mother ALLERGIES: Please see below. REVIEW OF SYSTEMS: ROS was negative except as noted in the HPI HOME MEDICATIONS: Please see below. PHYSICAL EXAMINATION: VITAL SIGNS: see below GENERAL APPEARANCE: NAD HEENT: NCAT, EOMI, MMM CARDIOVASCULAR: RRR, no m/r/g LUNGS: CTAB ABDOMEN: Normoactive, soft, protuberant, no pain on examination when distracted, but on ROS reports R abdominal and back pain. NEUROLOGICAL: CN3-12 intact, grossly unremarkable PSYCHIATRIC; AOx3 LABORATORY DATA: See below. IMAGING: None MICROBIOLOGY: Please see below. ASSESSMENT: 45 yo W with a history of depression, anxiety, hypothyroidism, a chart history of HTN, HLD, GERD, IBS who was brought in by police after she called police reporting domestic disturbance and now admitted to [facility] for depression with paranoid delusions with expressed SI and HI that she now denies. Depression with paranoid delusions and report of recent SI and HI though she denies at this time: -plan per primary psychiatry team Hypothyroidism: -continue levothyroxine No other active medical issues at this time. Medicine will sign off. Vital Signs Vital Signs Date Time Temp Pulse Resp B/P (MAP) Pulse Ox O2 Delivery O2 Flow Rate FiO2 02/05/21 06:00 99.1 81 16 148/88 (108) 98 Room Air Laboratory Data Labs 24H Laboratory Tests 2 02/04/21 12:22: Anion Gap 4L, Glomerular Filtration Rate > 60.0, Calcium Level 9.0, Total Bilirubin 0.5, Direct Bilirubin < 0.1, Aspartate Amino Transf (AST/SGOT) 28, Alanine Aminotransferase (ALT/SGPT) 60, Alkaline Phosphatase 45, Total Protein 7.6, Albumin 4.4, Albumin/Globulin Ratio 1.4, Thyroid Stimulating Hormone (TSH) 1.360, Human Chorionic Gonadotropin, Qual NEGATIVE, Salicylates Level 6.2, Acetaminophen Level < 2.0L, Ethyl Alcohol Level 0.003 02/04/21 12:23: Nucleated Red Blood Cells % (auto) 0.0, Urine Opiates Screen NEGATIVE, Urine Methadone Screen NEGATIVE, Urine Barbiturates Screen NEGATIVE, Urine Phencyclidine Screen NEGATIVE, Urine Amphetamines Screen NEGATIVE, Urine Benzodiazepines Screen NEGATIVE, Urine Cocaine Metabolite Screen NEGATIVE, Urine Cannabinoids Screen NEGATIVE 02/04/21 15:29: Coronavirus (COVID-19)(PCR) NEGATIVE, Influenza Type A (RT-PCR) NEGATIVE, Influenza Type B (RT-PCR) NEGATIVE, Respiratory Syncytial Virus (PCR) NEGATIVE CBC/BMP Laboratory Tests 02/04/21 12:22 02/04/21 12:23 Home Medications Scheduled Escitalopram Oxalate (Lexapro) 10 Mg Tab, 20 MG PO QHS Levothyroxine Sodium (Levothyroxine Sodium) 50 Mcg Tablet, 50 MCG PO QAM Trazodone HCl (Trazodone HCl) 50 Mg Tablet, 50 MG PO QHS Scheduled PRN Hydroxyzine HCl (Hydroxyzine HCl) 25 Mg Tablet, 25 MG PO Q8H PRN for ANXIETY/AGITATION Allergies Coded Allergies: No Known Allergies (Unverified , 07/19/17) A-FIB/CHADSVASC A-FIB History Current/History of A-Fib/PAF?: No Current PO Anticoag Therapy: No Age/Risk Factor Scoring CHADSVASC: CHADSVASC Response (Comments) Value Age Risk Factor Age < 65 years old 0 Gender Risk Factor Female 1 Hx of CHF No 0 Hx of HTN No 0 Hx of Stroke/TIA/or VTE No 0 Hx of Diabetes No 0 Hx of Vascular Disease No 0 Total 1 Treatment Treatment ordered: NONE Reason Anticoagulant not given: Not indicated/[id number] SAMANTHA CARTAGENA MD Feb 05, 2021 11:08
[2021-02-05 16:05] VITALS: BP 126/82
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
[2021-02-05] MEDS: traZODone 50 MG TAB PO SCH (20:04)
[2021-02-05] MEDS: OLANZapine ORAL DISINTEGRATING TAB 5MG PO PRN (20:05)
[2021-02-05] MEDS: ESCITALOPRAM OXALATE 10 MG TAB (LEXAPRO) PO SCH (20:05)
[2021-02-06] MEDS: LEVOTHYROXINE 50MCG TABLET (0.05MG) PO SCH (06:01)
[2021-02-06 06:34] VITALS: BP 160/88
[2021-02-06] MEDS: OLANZapine 5 MG TAB PO SCH ×2 (08:02→20:03)
[2021-02-06] MEDS: OLANZapine ORAL DISINTEGRATING TAB 5MG PO PRN ×2 (10:45→20:03)
--- NOTE | 2021-02-06 12:58 | MHIPNPDOC ---
[facility] Progress Note Progress Note DATE OF SERVICE: 02/06/21 HISTORY: Patient is a 45 -year-old Single, Self-Employed, Domiciled , female, who had made a suicidal statement to her family during an argument. Dur ing the interview, patient is quite grandiose and dramatic, pointing to her right upper abdomen, having strange movements and theatrical postures and pointing to her open mouth and stating that she had been to several EDs and have been misdiagnosed. She reports that she is suing this hospital if her gallbladder pain is not addressed. Patient had a Abdominal CT 01/17/21 which showed no abnormalities in the report. She is quite dramatic, theatrical and grandiose and appears to be having somatic delusions. She states that there are several hospitals that she is suing but that she likes Dr. Newton in [place]. She denies that she made a suicidal statement, and reports that it is her daughter that has a problem. She states "I am the type of person..." then p roceeds to take her shirt off. She states "I am smart, I am book smart" She has rapid over-productive, tangential speech and remained fixated and focused on her abdominal pain. PER ED REPORT: Pt was brought in on a 9.41, after pt. called the police to report a domestic incident between her and her daughter. However, upon arrival, pt.s daughter wasnt even present, and had also called the police herself, expressing concerns about her mother, who was acting bizarre and threatening to harm herself and her daughter. When police arrived, pt. as not in a domestic dispute or an argument, but was actually alone, walking in and out of traffic dangerously. Pt reports she is here because "my daughter treats me awful". Pt reports she called the police because her daughter was yelling and "freaking out" and because "everyone is against her". pt. went on to talk about how she does everything for everyone, but that the entire family is against her. Pt also was fixated primarily on her health issues, reporting that she has been to 5 ED's all of which misdiagnosed her, but then went on to explain that the issue she is diagnosed with is gallbladder problems, and reports she is currently waiting for her gall bladder to be removed so she can feel better. pt. reports the gall bladder problem is causing her to have stomach problems and pain, as well as causing pain all over her body, all the way to her fingernails. Pt reports "I'm ill, Im very sick, I'm (and then named a song). Pt was making bizarre body movements during MHE, and kept stating this and any other issue she was having was due to her needing her gallbladder out soon. Pt states she is unsure how long her gallbladder has been bad, but reports it is one of the main causes of all of her issues, however, pt. ate entire meal prior to t/w entering the room, and did not visibly appear in pain. Pt does report that she has a mental health history, to include diagnosis of depression, anxiety, and bipolar. She also reports she had one suicide attempt via over dose but reports it was 'a long time ago" and that she was admitted inpatient at that time as well. Pt denies that she said she wanted to harm herself or anyone else today, however police, and pt.s daughter both report to t/w that pt. expressed s/i to both of them, and h/i to her daughter as well. Pt also reports that she was residing with her daughter, and pt.s ex-boyfriend but that she is now living in a camper on her daughter's property alone, however after speaking with pt.s daughter, no Boyfriend was mentioned living in the home, and although daughter reports there is a camper at the home, it is not where pt. resides. pt. admits to seeking OP at [facility] and states she sees Ana Cristina Morales, and that her next appointment is the 24th. Pt is advocating to be discharged home, stating she can CFS and that she would "never harm myself or hurt anyone." However, pt. is providing information that is conflicting to what police and pt.s daughter report, and pt. seems unable to have a suitable conversation or stay on task during MHE, without making bizarre statements or references to her health or fixating on specific topics including her health problems and how she has not been provided with good medical care, and has been wronged by the medical community, as well as her family, expressing paranoia that all of them are against her. Pt was also admitted in 2004 for a suicide attempt via overdose. Pt reports she lived with her boyfriend and daughter at her daughter's home, however pt. first reported her and her boyfriend broke up, and that her and her daughter do not get along and that pt. does everything for them with nothing in return, so she reports she's living in a camper on her daughter's property. Later during MHE, she also said she had a safe place to go if discharged and that it was her boyfriends. After speaking with pt.s daughter, she reported there is a camper on the property but that no one lives there, her mother just went there today because she was angry, but that pt. does in fact reside with her daughter. Pt reports having a poor appetite due to gall bladder problems and being unable to eat, or sick after eating, but pt. ate her entire tray for lunch with no issues. pt. also made some bizarre movements, and had difficulty focusing and staying on track during MHE, as she was fixated on specific topics, those being her health and how she was wronged by local hospitals, as well as how her family is against her, which pt.s daughter reports has been a paranoid ideation pt. has been increasingly focusing on for the past week. T/w spoke with pt.s daughter Liseth . Liseth reports being very concerned for her mother and her mental health and safety. Reports pt. has always struggled with depression, bipolar, and has had one suicide attempt via overdose several years ago, but that as long as she maintained her outpatient and took medications as prescribed, she was able to function and have a fairly normal life at her baseline. She reports that pt. has had health problems with her GI and stomach for about 1 month or so, and that sense that began, pt.s mental health has declined, as pt. has become more and more fixated on her health problems, and has been to 5 ED's in the past month or so looking for different answers for what is wrong with her gall bladder and stomach. Liseth also reports pt.s mental health has significantly declined rapidly over the past week. she states pt. has been making bizarre body movements, has been paranoid and delusional to think her and all of her family are against pt. and out to get her. Also reports that she has been making suicidal threats for the past week, and today was yelling and screaming at Liseth threatening to not only harm herself, but to harm her daughter physically as well, which she reports her mother has never done before. She reports grave concern for her mother's safety, stating she believes she needs an admission, as she believes she needs help and is a danger to herself and other's until she can somehow get better and return to her baseline. VITAL SIGNS: See below. CURRENT MEDICATIONS: See below. MENTAL STATUS EXAMINATION: Patient is a 45 -year-old Single, Self-Employed, Domiciled , female, who had made a suicidal statement to her family during an argument. General appearance: Unkempt, hygiene and grooming is fair, appears older than her stated age Behavior: Cooperative, less grandiose, less theatrical Eye contact: Maintains eye contact Speech: Is normal rate tone and volume. Language skills are intact. Thought processes including: Linear and organized. Thought content: Denies depression and anxiety denies suicidal ideation. Abstract reasoning, and computation: Fair. Description of associations: Denies. Description of abnormal or psychotic thoughts: Denies and not observed with any psychosis. Judgment: Fair. Insight: Fair. Orientation: Alert and oriented x3. Recent and remote memory: Intact. Attention span and concentration: Good. Language: Expansive. Fund of knowledge: Average. Mood: Depressed. Affect: Constricted. DIAGNOSES: Bipolar disorder I recurrent mixed features Alcohol use disorder Cannabis use disorder ASSESSMENT: Patient appears to have improved from yesterday less grandiose, less theatrical, less restless. She denies depression and anxiety. Denies suicidal ideation. She is however not attending to her ADLs, found sleeping at noon. She is isolative. She is requesting to be discharged soon. She has minimal responses to any questions, states no to all questions asked about psychotic issue MANAGEMENT PLAN: Continue all medications. Patient is not willing to take a mood stabilizer states she only wants the olanzapine TIME SPENT: 25 minutes. Vital Signs Vital Signs Date Time Temp Pulse Resp B/P (MAP) Pulse Ox O2 Delivery O2 Flow Rate FiO2 02/06/21 06:34 98.4 78 16 160/88 (112) 100 Room Air Current Medications Current Medications Medications (Trade) Dose Ordered Sig/Yumiko Route PRN Reason Start Time Stop Time Status Last Admin Dose Admin Al Hydrox/Mg Hydrox/Simethicone (Mylanta) 30 ml Q4HP PRN PO HEARTBURN/INDIGESTION 02/04/21 15:15 Escitalopram Oxalate (Lexapro) 20 mg QHS PO 02/04/21 21:00 02/05/21 20:05 Home Med (Med Rec Complete!) ASDIRECTED XX 02/04/21 16:10 02/04/21 16:10 DC Hydroxyzine HCl (Atarax) 25 mg Q8H PRN PO ANXIETY/AGITATION 02/04/21 16:00 Ibuprofen (Advil) 400 mg Q6HP PRN PO MODERATE PAIN (PS 5-7) 02/04/21 15:15 Levothyroxine Sodium (Synthroid) 50 mcg DAILY@0600 PO 02/05/21 06:00 02/06/21 06:01 Magnesium Hydroxide (Milk Of Magnesia) 30 ml DAILYPRN PRN PO CONSTIPATION 02/04/21 15:15 Olanzapine (ZyPREXA ZYDIS) 5 mg Q6HP PRN PO ANXIETY/AGITATION 02/05/21 10:40 02/05/21 20:05 Olanzapine (ZyPREXA) 5 mg BID PO 02/05/21 09:00 02/06/21 08:02 Trazodone HCl (Desyrel) 50 mg QHS PO 02/04/21 21:00 02/05/21 20:04 Trazodone HCl (Desyrel) 50 mg QHSP PRN PO INSOMNIA 02/04/21 15:15 02/04/21 16:11 DC Allergies Coded Allergies: No Known Allergies (Unverified , 07/19/17) RAO ANDERSON [employer] Feb 06, 2021 09:42
[2021-02-06 18:59] VITALS: BP 140/69
[2021-02-06] MEDS: traZODone 50 MG TAB PO SCH (20:03)
[2021-02-06] MEDS: ESCITALOPRAM OXALATE 10 MG TAB (LEXAPRO) PO SCH (20:03)
[2021-02-07 06:00] VITALS: BP 128/88
[2021-02-07] MEDS: LEVOTHYROXINE 50MCG TABLET (0.05MG) PO SCH (06:08)
[2021-02-07] MEDS: OLANZapine ORAL DISINTEGRATING TAB 5MG PO PRN (06:30)
[2021-02-07] MEDS: OLANZapine 5 MG TAB PO SCH (09:01)
[2021-02-07] MEDS ORDERED: OLAN5TAB PO (09:11)
[2021-02-07] MEDS ORDERED: NICO14DI24 TD (09:11)
--- NOTE | 2021-02-07 11:10 | MHDSPDOC ---
[facility] Discharge Summary Discharge Summary DATE OF ADMISSION: Feb 04, 2021 at 15:12 DATE OF DISCHARGE: February 07, 2021 at 1110 DISCHARGE DIAGNOSES: Bipolar disorder I recurrent mixed features Alcohol use disorder Cannabis use disorder REASON FOR ADMISSION: Patient is a 45 -year-old Single, Self-Employed, Domiciled , female, who had made a suicidal statement to her family during an argument. During the interview, patient is quite grandiose and dramatic, pointing to her right upper abdomen, having strange movements and theatrical postures and pointing to her open mouth and stating that she had been to several EDs and have been misdiagnosed. She reports that she is suing this hospital if her gallbladder pain is not addressed. Patient had a Abdominal CT 01/17/21 which showed no abnormalities in the report. She is quite dramatic, theatrical and grandiose and appears to be having somatic delusions. She states that there are several hospitals that she is suing but that she likes Dr. Newton in [place]. She denies that she made a suicidal statement, and reports that it is her daughter that has a problem. She states "I am the type of person..." then proceeds to take her shirt off. She states "I am smart, I am book smart" She has rapid over-productive, tangential speech and remained fixated and focused on her abdominal pain. PER ED REPORT: Pt was brought in on a 9.41, after pt. called the police to report a domestic incident between her and her daughter. However, upon arrival, pt.s daughter wasnt even present, and had also called the police herself, expressing concerns about her mother, who was acting bizarre and threatening to harm herself and her daughter. When police arrived, pt. as not in a domestic dispute or an argument, but was actually alone, walking in and out of traffic dangerously. Pt reports she is here because "my daughter treats me awful". Pt reports she called the police because her daughter was yelling and "freaking out" and because "everyone is against her". pt. went on to talk about how she does everything for everyone, but that the entire family is against her. Pt also was fixated primarily on her health issues, reporting that she has been to 5 ED's all of which misdiagnosed her, but then went on to explain that the issue she is diagnosed with is gallbladder problems, and reports she is currently waiting for her gall bladder to be removed so she can feel better. pt. reports the gall bladder problem is causing her to have stomach problems and pain, as well as causing pain all over her body, all the way to her fingernails. Pt reports "I'm ill, Im very sick, I'm (and then named a song). Pt was making bizarre body movements during MHE, and kept stating this and any other issue she was having was due to her needing her gallbladder out soon. Pt states she is unsure how long her gallbladder has been bad, but reports it is one of the main causes of all of her issues, however, pt. ate entire meal prior to t/w entering the room, and did not visibly appear in pain. Pt does report that she has a mental health history, to include diagnosis of depression, anxiety, and bipolar. She also reports she had one suicide attempt via over dose but reports it was 'a long time ago" and that she was admitted inpatient at that time as well. Pt denies that she said she wanted to harm herself or anyone else today, however police, and pt.s daughter both report to t/w that pt. expressed s/i to both of them, and h/i to her daughter as well. Pt also reports that she was residing with her daughter, and pt.s ex-boyfriend but that she is now living in a camper on her daughter's property alone, however after speaking with pt.s daughter, no Boyfriend was mentioned living in the home, and although daughter reports there is a camper at the home, it is not where pt. resides. pt. admits to seeking OP at [facility] and states she sees Ana Cristina Morales, and that her next appointment is the 24th. Pt is advocating to be discharged home, stating she can CFS and that she would "never harm myself or hurt anyone." However, pt. is providing information that is conflicting to what police and pt.s daughter report, and pt. seems unable to have a suitable conversation or stay on task during MHE, without making bizarre statements or references to her health or fixating on specific topics including her health problems and how she has not been provided with good medical care, and has been wronged by the medical community, as well as her family, expressing paranoia that all of them are against her. Pt was also admitted in 2004 for a suicide attempt via overdose. Pt reports she lived with her boyfriend and daughter at her daughter's home, however pt. first reported her and her boyfriend broke up, and that her and her daughter do not get along and that pt. does everything for them with nothing in return, so she reports she's living in a camper on her daughter's property. Later during MHE, she also said she had a safe place to go if discharged and that it was her boyfriends. After speaking with pt.s daughter, she reported there is a camper on the property but that no one lives there, her mother just went there today because she was angry, but that pt. does in fact reside with her daughter. Pt reports having a poor appetite due to gall bladder problems and being unable to eat, or sick after eating, but pt. ate her entire tray for lunch with no issues. pt. also made some bizarre movements, and had difficulty focusing and staying on track during MHE, as she was fixated on specific topics, those being her health and how she was wronged by local hospitals, as well as how her family is against her, which pt.s daughter reports has been a paranoid ideation pt. has been increasingly focusing on for the past week. T/w spoke with pt.s daughter Liseth . Liseth reports being very concerned for her mother and her mental health and safety. Reports pt. has always struggled with depression, bipolar, and has had one suicide attempt via overdose several years ago, but that as long as she maintained her outpatient and took medications as prescribed, she was able to function and have a fairly normal life at her baseline. She reports that pt. has had health problems with her GI and stomach for about 1 month or so, and that sense that began, pt.s mental health has declined, as pt. has become more and more fixated on her health problems, and has been to 5 ED's in the past month or so looking for different answers for what is wrong with her gall bladder and stomach. Liseth also reports pt.s mental health has significantly declined rapidly over the past week. she states pt. has been making bizarre body movements, has been paranoid and delusional to think her and all of her family are against pt. and out to get her. Also reports that she has been making suicidal threats for the past week, and today was yelling and screaming at Liseth threatening to not only harm herself, but to harm her daughter physically as well, which she reports her mother has never done before. She reports grave concern for her mother's safety, stating she believes she needs an admission, as she believes she needs help and is a danger to herself and other's until she can somehow get better and return to her baseline. VITAL SIGNS: See below. CONSULTANTS INVOLVED: See Medical H + P by Hospitalist TREATMENT AND PROGRESS ON THE UNIT: Patient was admitted to the [facility] on a legal status he was afforded the following treatment modalities: 1) Individual Therapy 2) Group Therapy 3) Medication Management 4) Milieu Therapy 5) Safe Environment HOSPITAL COURSE: Patient was admitted to [facility] on legal status. We resumed her home medications. On initial interview patient had no longer any reports of suicidal ideation and states that she and her daughter got into a fight and that she was no longer feeling agitated and overwhelmed. She reports that olanzapine was helping her with her mood. I discussed with her a mood stabilizer she decl ined to take any mood stabilizers. Patient no longer feeling depressed or anxious she denies suicidal or homicidal ideation at this time she is requesting to be discharged -she meets criteria by the treatment team for discharge today DISCHARGE ASSESSMENT: In today's interview, patient is alert and oriented, pts dress is appropriate. Hygiene and grooming is well-kempt. Smiles on approach and is pleasant and engaged in the interview. Denies depression and anxiety. Denies suicidal and homicidal ideation, planning or intent. Denies and is not observed with dimitris, psychotic symptoms of delusions, bizarre thinking, obsessions, paranoia, ruminations illogical thoughts, flight of ideas or having poor insight and judgement. Patient has normal mentation, declines further hospitalization on a voluntary status and meets criteria for discharge today. Patient encouraged to return to hospital if symptoms worsen or change and encouraged to call unit if he/she/they needs to speak to provider for questions regarding medications or care. MENTAL STATUS EXAMINATION ON DISCHARGE: Patient is a 45 -year-old Single, Self-Employed, Domiciled , female, who had made a suicidal statement to her family during an argument. General appearance: Unkempt, hygiene and grooming is fair, appears older than her stated age Behavior: Cooperative, less grandiose, less theatrical Eye contact: Maintains eye contact Speech: Is normal rate tone and volume. Language skills are intact. Thought processes including: Linear and organized. Thought content: Denies depression and anxiety denies suicidal ideation. Abstract reasoning, and computation: Fair. Description of associations: Denies. Description of abnormal or psychotic thoughts: Denies and not observed with any psychosis. Judgment: Fair. Insight: Fair. Orientation: Alert and oriented x3. Recent and remote memory: Intact. Attention span and concentration: Good. Language: Expansive. Fund of knowledge: Average. Mood: Euthymic. Affect: Flat MEDICATIONS ON DISCHARGE: See medication reconciliation PLAN/FOLLOWUP ARRANGEMENTS: TLS The amount of time spent in the coordination of care for this patient was approximately 25 minutes. ETOH/Disorder Med Rx ETOH/DRUG DISORDER RX: Offrd @ d/c & pt refused Vital Signs/I&Os Vital Signs Date Time Temp Pulse Resp B/P (MAP) Pulse Ox O2 Delivery O2 Flow Rate FiO2 02/07/21 06:00 98.9 73 20 128/88 (101) 94 02/06/21 06:34 Room Air Medications Scheduled Escitalopram Oxalate (Lexapro) 10 Mg Tab, 20 MG PO QHS, (Reported) Levothyroxine Sodium (Levothyroxine Sodium) 50 Mcg Tablet, 50 MCG PO QAM, (Reported) Nicotine (Nicotine Patch) 14 Mg Patch.td24, 14 MG TD DAILY for Nicotine, #7 Olanzapine (Olanzapine) 5 Mg Tablet, 5 MG PO BID for Mood, #14 Trazodone HCl (Trazodone HCl) 50 Mg Tablet, 50 MG PO QHS, (Reported) Scheduled PRN Hydroxyzine HCl (Hydroxyzine HCl) 25 Mg Tablet, 25 MG PO Q8H PRN for ANXIETY/AGITATION, (Reported) Allergies Coded Allergies: No Known Allergies (Unverified , 07/19/17) RAO ANDERSON NP Feb 07, 2021 11:09
== END 2021-02-07 11:40 | disposition home or self-care (01) | DRG 753 ==
LOC: M ED 11:55 → M ED INP 15:12 → M PSY 17:13
PROVIDERS: ADMIT Psychiatry & Neurology Psychiatry; ATTEND Psychiatry & Neurology Psychiatry
DX: F31.60 Bipolar disorder, current episode mixed, unspecified (principal); F10.10 Alcohol abuse, uncomplicated; F12.10 Cannabis abuse, uncomplicated; E03.9 Hypothyroidism, unspecified; Z20.822 Contact with and (suspected) exposure to COVID-19; Z79.899 Other long term (current) drug therapy; Z63.8 Other specified problems related to primary support group

== ENCOUNTER → 2021-03-10 | Outpatient (CLI) | payer OTHER ==
[~2021-03-10] MED LIST changes: +NICO14DI24 TD; +OLAN1TAB16 PO
== END ==
LOC: M LABSMTC 10:55
PROVIDERS: ATTEND Anesthesiology
DX: Z01.812 Encounter for preprocedural laboratory examination (principal); Z20.822 Contact with and (suspected) exposure to COVID-19

== ENCOUNTER 2021-03-14 11:58 | Day surgery (SDC) | payer OTHER ==
[~2021-03-14] VITALS: Ht 162.6 cm; Wt 75.7 kg
[~2021-03-14 11:58] MED LIST changes: +ASPI81TA26 PO; +D200CAP3 PO; +EZET10TA21 PO; +FAMO20TA PO; +NS 1,000 ML IV ONE; +OMEP10CASR PO
[2021-03-14] MEDS ORDERED: LIDOCAINE 2% 100MG/5ML SDV (FOR ANES.) As Ordered ONE (12:19)
[2021-03-14] MEDS ORDERED: propofoL 200 MG/20 ML VIAL As Ordered ONE (12:19)
--- NOTE | 2021-03-14 13:25 | ROOR ---
Patient Name: Kay Pearson Procedure Date: 03/14/2021 1:12 PM Date of : 1975 Age: 45 Room: [facility] Gender: Female Note Status: Finalized Procedure: Upper GI endoscopy Indications: Abdominal pain in the right upper quadrant Providers: Priyank Fisher MD Referring MD: Jeanne TORRES DO Requesting Provider: Medicines: Monitored Anesthesia Care Complications: No immediate complications. Procedure: Pre-Anesthesia Assessment: - The heart rate, respiratory rate, oxygen saturations, blood pressure, adequacy of pulmonary ventilation, and response to care were monitored throughout the procedure. The Endoscope was introduced through the mouth, and advanced to the second part of duodenum. The upper GI endoscopy was accomplished without difficulty. The patient tolerated the procedure well. Findings: The esophagus was normal. The stomach was normal. The examined duodenum was normal. Impression: - Normal esophagus. - Normal stomach. - Normal examined duodenum. - No specimens collected. Recommendation: - Observe patient's clinical course. - Follow an antireflux regimen. Procedure Code(s): --- Professional --- 00269, Esophagogastroduodenoscopy, flexible, transoral; diagnostic, including collection of specimen(s) by brushing or washing, when performed (separate procedure) Diagnosis Code(s): --- Professional --- R10.11, Right upper quadrant pain CPT copyright 2019 [employer]. All rights reserved. The codes documented in this report are preliminary and upon welfare aide review may be revised to meet current compliance requirements. Priyank Fisher MD Priyank Fisher MD 03/14/2021 1:24:43 PM Electronically signed by Priyank Fisher MD Number of Addenda: 0 Note Initiated On: 03/14/2021 1:12 PM Estimated Blood Loss: Estimated blood loss: none.
[2021-03-14 13:45] VITALS: BP 138/84
== END 2021-03-14 13:47 | disposition home or self-care (01) ==
LOC: M OPP 11:58
PROVIDERS: ATTEND Internal Medicine Gastroenterology
DX: R19.11 Absent bowel sounds (principal); Z79.82 Long term (current) use of aspirin; Z79.899 Other long term (current) drug therapy; Z88.8 Allergy status to other drugs, medicaments and biological substances; F17.210 Nicotine dependence, cigarettes, uncomplicated

== ENCOUNTER → 2021-04-09 | Outpatient (CLI) | payer OTHER ==
[~2021-04-09] MED LIST changes: -NS 1,000 ML IV ONE
--- NOTE | 2021-04-09 10:50 | REP ---
INDICATION: RUQ ABD PAIN. COMPARISON: None. TECHNIQUE/RADIOTRACER AND DOSE: 6.6 mCi of Technetium-99m mebrofenin was injected and sequential anterior images are acquired. 65 minutes after the mebrofenin injection, the patient consumed 8 ounces Ensure and an additional 60 minutes of imaging was acquired. Regions of interest are plotted around the gallbladder. FINDINGS: The initial hepatocellular parenchymal uptake phase is normal and homogeneous. Intra- and extra-hepatic bile ducts are labeled by the 15-minute image. The gallbladder is first labeled on the 15-minute image. There is normal washout from the liver parenchyma into the gallbladder and small intestine on subsequent images. The gallbladder ejection fraction is 56%. Values greater than 35% are considered normal with this technique. IMPRESSION: Normal hepatobiliary scan and normal gallbladder ejection fraction. <Electronically signed by Fan Reyes > 04/09/21 [id number]
== END ==
LOC: M RAD 08:03
PROVIDERS: ATTEND Physician Assistant Medical
DX: R10.11 Right upper quadrant pain (principal)
CPT/HCPCS: 78227; A9537

== ENCOUNTER → 2021-08-18 | Outpatient (REF) | payer OTHER ==
[2021-08-19 12:09] LABS: HEMATOCRIT 42.4 % (36.0-47.0); HEMOGLOBIN 14.5 g/dl (12.0-15.5); MEAN CORPUSCULAR HEMOGLOBIN 33.1 pg (27.0-33.0); MEAN CORPUSCULAR HGB CONC 34.2 g/dl (32.0-36.5); MEAN CORPUSCULAR VOLUME 96.8 fl (80.0-96.0); PLATELET COUNT, AUTOMATED 383 10^3/uL (150-450); RED BLOOD COUNT 4.38 10^6/uL (4.00-5.40); WHITE BLOOD COUNT 9.8 10^3/uL (4.0-10.0)
[2021-08-19 12:46] LABS: ALBUMIN 4.7 GM/DL (3.2-5.2); ALT/SGPT 26 U/L (12-78); BILIRUBIN,TOTAL 0.5 MG/DL (0.2-1.0); BLOOD UREA NITROGEN 14 MG/DL (7-18); CALCIUM LEVEL 9.6 MG/DL (8.5-10.1); CARBON DIOXIDE LEVEL 28 MEQ/L (21-32); CHLORIDE LEVEL 104 MEQ/L (98-107); CREATININE FOR GFR 0.99 MG/DL (0.55-1.30); FREE T4 1.54 NG/DL (0.76-1.46); GLOMERULAR FILTRATION RATE > 60.0 (>58); GLUCOSE, FASTING 91 MG/DL (70-100); POTASSIUM SERUM 4.8 MEQ/L (3.5-5.1); SODIUM LEVEL 139 MEQ/L (136-145); TOTAL PROTEIN 8.1 GM/DL (6.4-8.2)
[2021-08-19 13:26] LABS: HIV 1&2 SCREEN CENTAUR NEGATIVE (NEGATIVE)
[2021-08-20 18:17] LABS: ANA (HEP2) Negative (.)
== END ==
LOC: M SFHCCLAY 15:04
PROVIDERS: ATTEND Physician Assistant
DX: R82.90 Unspecified abnormal findings in urine (principal); F31.9 Bipolar disorder, unspecified; M79.10 Myalgia, unspecified site; E03.9 Hypothyroidism, unspecified; Z20.9 Contact with and (suspected) exposure to unspecified communicable disease

== ENCOUNTER → 2021-09-05 | Outpatient (CLI) | payer OTHER ==
[~2021-09-05] MED LIST changes: -DICY20TA11 PO; +DICY20TA20 PO
== END ==
LOC: M RAD 10:39
PROVIDERS: ATTEND Physician Assistant Medical
DX: R10.84 Generalized abdominal pain (principal)

== ENCOUNTER 2021-09-26 09:00 | Emergency (ER) | payer OTHER ==
[~2021-09-26] VITALS: Ht 162.6 cm; Wt 78.8 kg
[2021-09-26] MEDS ORDERED: MORPHINE 4 MG/ML 1ML VIAL/SYRINGE (J2270) IV ONE (11:15)
[2021-09-26] MEDS ORDERED: NS 1,000 ML IV ONE (11:15)
[2021-09-26] MEDS ORDERED: ONDANSETRON 4MG/2ML VIAL IV ONE (11:30)
[2021-09-26] MEDS ORDERED: ABIL1TAB13 (11:45)
[2021-09-26 11:50] LABS: BASO # 0.1 10^3/uL (0.0-0.2); EOS # 0.2 10^3/uL (0.0-0.5); EOS % 2.4 % (0.0-3.0); HEMATOCRIT 35.7 % (36.0-47.0); HEMOGLOBIN 12.1 g/dl (12.0-15.5); LYMPH # 2.2 10^3/uL (1.5-5.0); LYMPH % 32.3 % (24.0-44.0); MEAN CORPUSCULAR HEMOGLOBIN 33.6 pg (27.0-33.0); MEAN CORPUSCULAR HGB CONC 33.9 g/dl (32.0-36.5); MEAN CORPUSCULAR VOLUME 99.2 fl (80.0-96.0); MONO # 0.6 10^3/uL (0.0-0.8); MONO % 8.7 % (2.0-8.0); NEUTROPHILS # 3.8 10^3/uL (1.5-8.5); NEUTROPHILS % 55.3 % (36.0-66.0); PLATELET COUNT, AUTOMATED 322 10^3/uL (150-450); WHITE BLOOD COUNT 6.8 10^3/uL (4.0-10.0)
[2021-09-26 12:15] LABS: ALBUMIN 3.7 GM/DL (3.2-5.2); ALT/SGPT 26 U/L (12-78); BILIRUBIN,DIRECT < 0.1 MG/DL (0.0-0.2); BILIRUBIN,TOTAL 0.2 MG/DL (0.2-1.0); BLOOD UREA NITROGEN 13 MG/DL (7-18); CALCIUM LEVEL 8.8 MG/DL (8.5-10.1); CARBON DIOXIDE LEVEL 24 MEQ/L (21-32); CHLORIDE LEVEL 111 MEQ/L (98-107); CREATININE FOR GFR 0.76 MG/DL (0.55-1.30); GLOMERULAR FILTRATION RATE > 60.0 (>58); GLUCOSE, FASTING 72 MG/DL (70-100); LIPASE 154 U/L (73-393); POTASSIUM SERUM 4.2 MEQ/L (3.5-5.1); SODIUM LEVEL 141 MEQ/L (136-145); TOTAL PROTEIN 6.5 GM/DL (6.4-8.2)
[2021-09-26] MEDS ORDERED: KETOROLAC 30 MG/ML 1ML VIAL IV ONE (12:45)
[2021-09-26 13:44] LABS: RHEUMATOID FACTOR QUANT < 10.0 IU/ML (<15.0)
[2021-09-26] MEDS ORDERED: KETO10TAB PO (13:59)
[2021-09-26] MEDS ORDERED: HYDR-3713 PO (13:59)
[2021-09-26] MEDS ORDERED: PROM25TA12 PO (13:59)
[2021-09-26 14:12] VITALS: BP 134/82
[2021-09-29 12:07] LABS: ANTINUCLEAR ANTIBODIES DIRECT Negative (Negative)
== END 2021-09-26 14:20 | disposition home or self-care (01) ==
LOC: M ED 09:00
DX: R10.9 Unspecified abdominal pain (principal); R11.0 Nausea; Z96.0 Presence of urogenital implants; I10 Essential (primary) hypertension; E78.5 Hyperlipidemia, unspecified; K21.9 Gastro-esophageal reflux disease without esophagitis; K58.9 Irritable bowel syndrome, unspecified; Z87.19 Personal history of other diseases of the digestive system; Z79.899 Other long term (current) drug therapy; Z79.82 Long term (current) use of aspirin; Z88.8 Allergy status to other drugs, medicaments and biological substances; F17.210 Nicotine dependence, cigarettes, uncomplicated
CPT/HCPCS: 80048; 80076; 81001; 83605; 83690; 85025; 86038; 86431; 87086; 96361; 96374; 96375; 99284; J1885; J2270; J2405

== ENCOUNTER 2021-10-04 13:51 | Emergency (ER) | payer OTHER ==
[~2021-10-04] VITALS: Ht 162.6 cm; Wt 77.7 kg
[~2021-10-04 13:51] MED LIST changes: +ABIL1TAB13; +HYDR-3713 PO; +KETO10TAB PO; +PROM25TA12 PO
[2021-10-04] MEDS ORDERED: CIPR500T39 PO (15:05)
[2021-10-04] MEDS ORDERED: GABA-282 PO (15:50)
[2021-10-04] MEDS ORDERED: GABAPENTIN 300 MG CAP PO ONE (15:50)
[2021-10-04 16:03] VITALS: BP 148/85
== END 2021-10-04 16:10 | disposition home or self-care (01) ==
LOC: M ED 13:51
DX: R52 Pain, unspecified (principal); I10 Essential (primary) hypertension; E78.5 Hyperlipidemia, unspecified; K58.9 Irritable bowel syndrome, unspecified; K21.9 Gastro-esophageal reflux disease without esophagitis; Z87.19 Personal history of other diseases of the digestive system; Z79.899 Other long term (current) drug therapy; Z79.890 Hormone replacement therapy; Z79.82 Long term (current) use of aspirin; Z88.8 Allergy status to other drugs, medicaments and biological substances; F17.210 Nicotine dependence, cigarettes, uncomplicated

== ENCOUNTER → 2021-10-07 | Outpatient (REF) | payer OTHER ==
[~2021-10-07] MED LIST changes: +CIPR500T39 PO; +GABA-282 PO
[2021-10-07 16:38] LABS: C REACTIVE PROTEIN QUANTITATIV < 0.30 MG/DL (0.00-0.30); RHEUMATOID FACTOR QUANT < 10.0 IU/ML (<15.0)
[2021-10-09 17:08] LABS: CARDIOLIPIN IGA ANTIBODY <9 APL U/mL (0-11); CARDIOLIPIN IGG ANTIBODY <9 GPL U/mL (0-14); CARDIOLIPIN IGM ANTIBODY <9 MPL U/mL (0-12); Lyme Disease IgG/IgM Antibodie <0.91 ISR (0.00-0.90); Lyme Disease IgM Ab Quantitati <0.80 index (0.00-0.79)
== END ==
LOC: M SFHCCLAY 09:25
PROVIDERS: ATTEND Family Medicine
DX: G89.29 Other chronic pain (principal)

== ENCOUNTER 2021-10-29 13:55 | Emergency (ER) | payer OTHER ==
[~2021-10-29] VITALS: Ht 162.6 cm; Wt 76.9 kg
[2021-10-29] MEDS ORDERED: PROMETHAZINE 25 MG TAB PO ONE (17:05)
[2021-10-29] MEDS ORDERED: MORPHINE 10 MG/ML 1ML VIAL (J2270) IM ONE (17:05)
[2021-10-29 17:33] LABS: BASO # 0.1 10^3/uL (0.0-0.2); BASO % 0.6 % (0.0-1.0); EOS # 0.1 10^3/uL (0.0-0.5); EOS % 1.7 % (0.0-3.0); HEMATOCRIT 39.8 % (36.0-47.0); HEMOGLOBIN 13.7 g/dl (12.0-15.5); LYMPH # 3.6 10^3/uL (1.5-5.0); LYMPH % 43.1 % (24.0-44.0); MEAN CORPUSCULAR HEMOGLOBIN 32.7 pg (27.0-33.0); MEAN CORPUSCULAR HGB CONC 34.4 g/dl (32.0-36.5); MONO # 0.6 10^3/uL (0.0-0.8); MONO % 6.9 % (2.0-8.0); NEUTROPHILS % 47.6 % (36.0-66.0); PLATELET COUNT, AUTOMATED 320 10^3/uL (150-450); RED BLOOD COUNT 4.19 10^6/uL (4.00-5.40); WHITE BLOOD COUNT 8.4 10^3/uL (4.0-10.0)
[2021-10-29 18:07] LABS: ALBUMIN 4.3 GM/DL (3.2-5.2); ALT/SGPT 34 U/L (12-78); BILIRUBIN,DIRECT < 0.1 MG/DL (0.0-0.2); BILIRUBIN,TOTAL 0.3 MG/DL (0.2-1.0); BLOOD UREA NITROGEN 10 MG/DL (7-18); CALCIUM LEVEL 9.5 MG/DL (8.5-10.1); CARBON DIOXIDE LEVEL 28 MEQ/L (21-32); CHLORIDE LEVEL 108 MEQ/L (98-107); CREATININE FOR GFR 0.81 MG/DL (0.55-1.30); GLOMERULAR FILTRATION RATE > 60.0 (>58); GLUCOSE, FASTING 86 MG/DL (70-100); LIPASE 150 U/L (73-393); POTASSIUM SERUM 4.1 MEQ/L (3.5-5.1); SODIUM LEVEL 142 MEQ/L (136-145); TOTAL PROTEIN 7.3 GM/DL (6.4-8.2)
[2021-10-29 18:32] VITALS: BP 106/59
== END 2021-10-29 19:06 | disposition home or self-care (01) ==
LOC: M ED 13:55
DX: R10.11 Right upper quadrant pain (principal); I10 Essential (primary) hypertension; E78.5 Hyperlipidemia, unspecified; E03.9 Hypothyroidism, unspecified; K21.9 Gastro-esophageal reflux disease without esophagitis; Z87.19 Personal history of other diseases of the digestive system; Z79.899 Other long term (current) drug therapy; Z79.890 Hormone replacement therapy; Z79.82 Long term (current) use of aspirin; Z88.8 Allergy status to other drugs, medicaments and biological substances; F17.210 Nicotine dependence, cigarettes, uncomplicated
CPT/HCPCS: 36415; 76700; 80048; 80076; 83690; 85025; 96372; 99283; J2270

== ENCOUNTER → 2021-12-02 | Outpatient (POV) | payer OTHER ==
[~2021-12-02] VITALS: Ht 162.6 cm; Wt 77.2 kg
[2021-12-02 15:00] VITALS: BP 126/75
== END ==
LOC: M IRPOV 14:23
PROVIDERS: ATTEND Radiology Diagnostic Radiology
DX: Z09 Encounter for follow-up examination after completed treatment for conditions other than malignant neoplasm (principal); Z87.448 Personal history of other diseases of urinary system

== ENCOUNTER 2022-10-13 12:36 | Inpatient (IN) | payer OTHER ==
[~2022-10-13] VITALS: Ht 162.6 cm; Wt 77.3 kg
[2022-10-13 13:25] LABS: HEMATOCRIT 39.2 % (36.0-47.0); HEMOGLOBIN 13.4 g/dl (12.0-15.5); MEAN CORPUSCULAR HEMOGLOBIN 32.8 pg (27.0-33.0); MEAN CORPUSCULAR HGB CONC 34.2 g/dl (32.0-36.5); MEAN CORPUSCULAR VOLUME 95.8 fl (80.0-96.0); PLATELET COUNT, AUTOMATED 317 10^3/uL (150-450); RED BLOOD COUNT 4.09 10^6/uL (4.00-5.40); WHITE BLOOD COUNT 6.6 10^3/uL (4.0-10.0)
[2022-10-13 13:39] LABS: ACETAMINOPHEN LEVEL < 2.0 UG/ML (10.0-20.0); BLOOD UREA NITROGEN 10 MG/DL (9-23); CALCIUM LEVEL 9.9 MG/DL (8.5-10.1); CARBON DIOXIDE LEVEL 26 MMOL/L (20-31); CHLORIDE LEVEL 106 MMOL/L (98-107); GLOMERULAR FILTRATION RATE > 60.0 (>58); GLUCOSE, FASTING 87 MG/DL (60-100); POTASSIUM SERUM 3.8 MMOL/L (3.5-5.1); SODIUM LEVEL 141 MMOL/L (136-145)
[2022-10-13 14:18] LABS: ETHYL ALCOHOL (ETHANOL) 0.004 % (0.000-0.010)
[2022-10-13 14:20] LABS: SALICYLATE LEVEL < 3.0 MG/DL (<30)
[2022-10-13 14:39] LABS: ALBUMIN 4.1 G/DL (3.2-5.2); ALKALINE PHOSPHATASE 77 U/L (46-116); ALT/SGPT 21 U/L (7.0-40); AST/SGOT 18 U/L (<34); BILIRUBIN,DIRECT 0.2 MG/DL (<0.4); BILIRUBIN,TOTAL 0.6 MG/DL (0.3-1.2); THYROID STIMULATING HORMONE 1.798 uIU/ML (0.55-4.78)
[2022-10-13 14:48] LABS: HCG, SERUM QUALITATIVE NEGATIVE (NEGATIVE)
[2022-10-13] MEDS ORDERED: OMEP-173 PO (15:08)
[2022-10-13] MEDS ORDERED: VITA200032 PO (15:08)
[2022-10-13] MEDS ORDERED: RISP-8 PO (15:08)
[2022-10-13] MEDS ORDERED: RISP-9 PO (15:08)
[2022-10-13] MEDS ORDERED: RAME8TAB2 PO (15:08)
[2022-10-13] MEDS ORDERED: LEXA1TAB PO (15:08)
[2022-10-13] MEDS ORDERED: HOME MED LIST COMPLETE! XX SCH (15:15)
[2022-10-13 20:21] LABS: METHADONE URINE NEGATIVE (NEGATIVE); OPIATES URINE NEGATIVE (NEGATIVE)
[2022-10-13 20:22] LABS: AMPHETAMINES LEVEL URINE NEGATIVE (NEGATIVE); BARBITURATES URINE NEGATIVE (NEGATIVE); BENZODIAZEPINES URINE NEGATIVE (NEGATIVE); CANNABINOIDS URINE NEGATIVE (NEGATIVE); COCAINE METABOLITE URINE NEGATIVE (NEGATIVE); PHENCYCLIDINE URINE NEGATIVE (NEGATIVE)
[2022-10-13] MEDS ORDERED: MOM 30ML SUSPENSION UDC PO PRN (21:00)
[2022-10-13] MEDS ORDERED: traZODone 50 MG TAB PO PRN (21:00)
[2022-10-13] MEDS ORDERED: ACETAMINOPHEN TAB 650MG DOSE (2X325MG) PO PRN (21:00)
[2022-10-13] MEDS ORDERED: IBUPROFEN 400MG TAB PO PRN (21:00)
[2022-10-13] MEDS ORDERED: diphenhydrAMINE 25MG CAP PO PRN (21:00)
[2022-10-13] MEDS ORDERED: MAALOX 30 ML SUSP *UDC PO PRN (21:00)
[2022-10-13 21:54] VITALS: BP 142/90
[2022-10-14 06:32] VITALS: BP 158/90
[2022-10-14] MEDS ORDERED: RAMELTEON 8 MG TAB (ROZEREM) PO PRN (09:55)
[2022-10-14] MEDS: LEVOTHYROXINE 50MCG TABLET (0.05MG) PO SCH (11:05)
[2022-10-14] MEDS: risperiDONE 1 MG TAB PO SCH (11:52)
[2022-10-14] MEDS: ESCITALOPRAM OXALATE 10 MG TAB (LEXAPRO) PO SCH (11:52)
[2022-10-14] MEDS: OMEPRAZOLE 20MG CAP PO SCH (11:52)
[2022-10-14] MEDS ORDERED: lisinopriL 5 MG TAB PO SCH (13:00)
[2022-10-14 16:34] VITALS: BP 135/76
[2022-10-14] MEDS: lisinopriL 5 MG TAB PO SCH (20:37)
[2022-10-14] MEDS: SIMVASTATIN 40 MG TAB PO SCH (20:38)
[2022-10-14] MEDS: risperiDONE 2 MG TAB PO SCH (20:38)
[2022-10-15] MEDS: LEVOTHYROXINE 50MCG TABLET (0.05MG) PO SCH (06:05)
[2022-10-15 06:35] VITALS: BP 132/80
[2022-10-15] MEDS: OMEPRAZOLE 20MG CAP PO SCH (08:18)
[2022-10-15] MEDS: ESCITALOPRAM OXALATE 10 MG TAB (LEXAPRO) PO SCH (08:18)
[2022-10-15] MEDS: risperiDONE 1 MG TAB PO SCH (08:18)
[2022-10-15 18:53] VITALS: BP 151/94
[2022-10-15] MEDS: risperiDONE 2 MG TAB PO SCH (20:10)
[2022-10-15] MEDS: SIMVASTATIN 40 MG TAB PO SCH (20:10)
[2022-10-15 20:11] VITALS: BP 130/87
[2022-10-15] MEDS: lisinopriL 5 MG TAB PO SCH (20:11)
[2022-10-16] MEDS: LEVOTHYROXINE 50MCG TABLET (0.05MG) PO SCH (05:34)
[2022-10-16 06:20] VITALS: BP 142/85
[2022-10-16] MEDS: OMEPRAZOLE 20MG CAP PO SCH (07:57)
[2022-10-16] MEDS: ESCITALOPRAM OXALATE 10 MG TAB (LEXAPRO) PO SCH (07:57)
[2022-10-16] MEDS: risperiDONE 1 MG TAB PO SCH (07:58)
[2022-10-16] MEDS ORDERED: LEVO50TA5 PO (10:04)
[2022-10-16] MEDS ORDERED: RISP-9 PO (10:04)
[2022-10-16] MEDS ORDERED: LEXA1TAB PO (10:04)
[2022-10-16] MEDS ORDERED: LISI5TAB11 PO (10:04)
[2022-10-16] MEDS ORDERED: OMEP-173 PO (10:04)
[2022-10-16] MEDS ORDERED: RISP-8 PO (10:04)
[2022-10-16] MEDS ORDERED: SIMV40TA20 PO (10:04)
== END 2022-10-16 11:50 | disposition home or self-care (01) | DRG 753 ==
LOC: M ED 12:36 → M ED INP 20:58 → M PSY 21:43
PROVIDERS: ADMIT Student in an Organized Health Care Education/Training Program; ATTEND Psychiatry & Neurology Psychiatry
DX: F31.9 Bipolar disorder, unspecified (principal); Z91.14 Patient's other noncompliance with medication regimen; R45.851 Suicidal ideations; Z91.51 Personal history of suicidal behavior; E03.9 Hypothyroidism, unspecified; I10 Essential (primary) hypertension; E78.5 Hyperlipidemia, unspecified; K21.9 Gastro-esophageal reflux disease without esophagitis; K58.9 Irritable bowel syndrome, unspecified; F17.210 Nicotine dependence, cigarettes, uncomplicated; Z79.890 Hormone replacement therapy; Z79.899 Other long term (current) drug therapy; Z88.8 Allergy status to other drugs, medicaments and biological substances

== ENCOUNTER 2025-07-08 09:27 | Emergency (ER) | payer MEDICAID, OTHER ==
[~2025-07-08] VITALS: Ht 162.6 cm; Wt 87.7 kg
[~2025-07-08 09:27] MED LIST changes: -ASPI-161 PO; +ASPI-615 PO; -EZET10TA21 PO; +EZET10TA57 PO; +EZET10TA58 PO; +GABA-1172 PO; -GABA-282 PO; +HYDR12.510 PO; -HYDR12CA PO; -IBUP1TAB6 PO; +LISI5TAB11 PO; +OMEP-173 PO; +RAME8TAB2 PO; +RISP-105 PO; +RISP-106 PO; +SFHIBU600 PO; +VITA200032 PO; -ZETI10TA16 PO
[2025-07-08 10:14] LABS: BASO # 0.1 10^3/uL (0.0-0.2); BASO % 0.6 % (0.0-1.0); EOS # 0.2 10^3/uL (0.0-0.5); EOS % 1.4 % (0.0-3.0); LYMPH # 2.9 10^3/uL (1.5-5.0); LYMPH % 27.9 % (24.0-44.0); MONO # 0.8 10^3/uL (0.0-0.8); MONO % 7.3 % (2.0-8.0); NEUTROPHILS # 6.5 10^3/uL (1.5-8.5); NEUTROPHILS % 62.6 % (36.0-66.0); PLATELET COUNT, AUTOMATED 439 10^3/uL (150-450)
[2025-07-08] MEDS: NS 500 ML IV ONE ×2 (10:29→11:21)
[2025-07-08 10:51] LABS: ALT/SGPT 45 U/L (7.0-40); AST/SGOT 35 U/L (<34); HCG, SERUM QUALITATIVE NEGATIVE (NEGATIVE)
[2025-07-08 10:52] LABS: CALCIUM LEVEL 9.8 MG/DL (8.5-10.1); CARBON DIOXIDE LEVEL 26.0 MMOL/L (20-31); CHLORIDE LEVEL 108.0 MMOL/L (98-107); CREATININE FOR GFR 0.87 MG/DL (0.55-1.30); GLOMERULAR FILTRATION RATE 81.6 (>58); POTASSIUM SERUM 4.1 MMOL/L (3.5-5.1); SODIUM LEVEL 143.0 MMOL/L (136-145)
[2025-07-08] MEDS ORDERED: ISOVUE-370 76% 100 ML VIAL As Ordered ONE (11:16)
[2025-07-08] MEDS: ONDANSETRON 4MG/2ML VIAL IV ONE (11:21)
[2025-07-08] MEDS: MORPHINE 4 MG/ML 1 ML VIAL IV ONE (11:22)
[2025-07-08] MEDS: LIDOCAINE 2% 5 ML JELLY UROJET TOP ONE (12:52)
[2025-07-08 12:59] LABS: KETONE, URINE AUTO RFX 1+ mg/dL (NEGATIVE); LEUKOCYTE ESTERASE UR AUTO RFX NEGATIVE (NEGATIVE); MUCUS, URINE RFX SMALL (NEGATIVE); NITRITE, URINE AUTO RFX NEGATIVE (NEGATIVE); RBC, URINE AUTO RFX 1 /HPF (0-3); SQUAM EPITHELIAL CELL UR AURFX 2 /HPF (0-6); WBC, URINE AUTO RFX 1 /HPF (0-3)
[2025-07-08] MEDS ORDERED: PERC5TAB12 PO (13:14)
[2025-07-08 13:20] VITALS: BP 155/89; TEMP 97; O2SAT 96
== END 2025-07-08 13:33 | disposition home or self-care (01) ==
LOC: EDBD 09:27 → M ED 09:27
DX: R10.9 Unspecified abdominal pain (principal); K76.0 Fatty (change of) liver, not elsewhere classified; I10 Essential (primary) hypertension; K21.9 Gastro-esophageal reflux disease without esophagitis; E03.9 Hypothyroidism, unspecified; F17.210 Nicotine dependence, cigarettes, uncomplicated; F41.9 Anxiety disorder, unspecified; F32.A Depression, unspecified; F10.10 Alcohol abuse, uncomplicated; Z88.8 Allergy status to other drugs, medicaments and biological substances; Z79.899 Other long term (current) drug therapy
CPT/HCPCS: 71045; 74177; 80047; 80048; 80076; 81001; 83605; 83690; 84703; 85025; 87486; 87581; 87633; 87798; 93005; 96361; 96374; 96375; 99284; J2405; Q9967